=== PATIENT | female | born 1950 | race Caucasian/White ===

== ENCOUNTER 2024-06-05 02:44 | Outpatient (CLI) | payer MEDICARE, BC, SELFPAY | END 2024-06-05 02:45 | disposition home or self-care (01) | PROVIDERS: PCP Family Medicine; Visit Provider Family Medicine | DX: R06.09 Other forms of dyspnea (principal) | CPT/HCPCS: A0425; A0427 ==

== ENCOUNTER 2024-06-05 03:19 | Emergency (ER) | payer MEDICARE, BC, SELFPAY ==
--- NOTE | 2024-06-05 03:21 | ED_ITS ---
HPI - General Adult General Time Seen by Provider: 03:21 Date Seen: 06/05/24 Chief complaint: Shortness of Breath/Dyspnea Stated complaint: respiratory distress Time Seen by Provider: 06/05/24 03:20 Source: patient and EMS Mode of arrival: EMS Limitations: no limitations History of Present Illness HPI narrative: 73-year-old female who comes in today with shortness of breath. Patient says this been going on for several weeks, since being diagnosed with influenza at the end of April. She has a cough with some yellow phlegm, denies chest pain, notes some shortness of breath which tends to be worse at night. No sore throat, runny nose, nausea, vomiting, diarrhea, abdominal pain, dark or tarry stools, leg swelling. Tonight woke up with shortness breath, used albuterol with some improvement, DuoNeb given by EMS on route. Related Data Home Medications ?Medication ?Instructions ?Recorded ?Confirmed albuterol sulfate 90 mcg/actuation inhalation 06/05/24 aerosol inhaler codeine 10 mg-guaifenesin 100 mg/5 5 ml PO Q4H PRN cough 06/05/24 06/05/24 mL oral liquid prednisone 20 mg tablet mg DAILY 06/05/24 Previous Rx's ?Medication ?Instructions ?Recorded amoxicillin 875 mg-potassium 1 tab PO BID #10 tabs 06/05/24 clavulanate 125 mg tablet doxycycline hyclate 100 mg capsule 100 mg PO BID #10 caps 06/05/24 prednisone 10 mg tablets in a dose See Rx Instructions PO .COMPLEX 06/05/24 pack #21 ea Allergies Allergy/AdvReac Type Severity Reaction Status Date / Time No Known Drug Allergies Allergy Verified 06/05/24 03:28 PFS PFS Social History Smoking Status: Current every day smoker What tobacco products do you use: cigarettes Do you use any of these nicotine containing products: None Second hand tobacco smoke exposure: No How often do you have a drink containing alcohol: never AUDIT-C Alcohol total score: 0 Non-prescribed substance use: denies use Exam Narrative: Exam Narrative: General: Well-developed and well-nourished, no acute distress Head: Atraumatic and normocephalic Eyes: Pupils are equal reactive, extraocular motions intact, conjunctiva clear ENT: External nose and ears are normal, posterior pharynx without erythema or exudate Neck: No midline cervical tenderness, full spontaneous range of motion the neck, trachea midline, no adenopathy Heart: Regular rate and rhythm no murmurs or thrills Lungs: Trace expiratory wheeze on the right Abdomen: Soft, nontender, nondistended with active bowel sounds Musculoskeletal: No tenderness, deformity, or edema Neurologic: Awake, alert, and oriented x3, no gross focal neurologic deficits, cranial nerves intact as tested Psych: Mood and affect are appropriate Skin: No rashes Const: Vital Signs, click to edit/add: Vital Signs - 24 hr 06/05/24 03:24 Temperature 97.3 F L Pulse Rate [Pulse Oximeter] 59 L Respiratory Rate 20 Blood Pressure [Ri ght Upper Arm] 134/75 Pulse Oximetry 99 Oxygen Delivery Me thod Room Air Course Course ED Course: Reviewed prior records, patient was seen at outside emergency department May 14 diagnosed with influenza and given albuterol. Subsequently seen again on May 20 and started on Keflex for folliculitis, also prednisone burst for ongoing cough and wheezing. Patient was seen again yesterday morning for cough, chest x-ray at that time with emphysematous changes but no other acute findings and patient was continued on albuterol. Patient presents today with shortness of breath and cough, woke up short of breath tonight. Used albuterol at home with some improvement, DuoNeb by EMS with continued improvement. On exam here, no hypoxia, no tachycardia, no fever. Trace expiratory wheeze on the right. She patient has had x-ray and influenza testing but no further testing up to this point. Labs ordered to evaluate for other causes of shortness of breath including heart failure, CT scan of the chest ordered as well. Consider D-dimer or CT PE study but clinically pulmonary embolism unlikely with no hypoxia, no chest pain, no tachycardia or dysrhythmia. Given history of undiagnosed COPD, if workup today is negative for signs of heart failure other etiology, consider antibiotics for COPD exacerbation and repeat of prednisone burst but would do prolonged taper at this point. Reevaluation(s) Time of Reevaluation #1: 04:04 Reevaluation #1: Labs independently interpreted by me with elevated white blood cell count 12.9. Chest CT independently interpreted by me with multiple nodules, bronchitis. Reviewed patient labs, basic metabolic panel is normal, BNP is negative. Reviewed CT results with patient including pulmonary nodules which will need follow-up, stable for discharge. Time of Reevaluation #2: 04:26 Vital Signs Vital signs: Initial Vital Signs Temperature 97.3 F L 06/05/24 03:24 Temperature Source Temporal Artery Scan 06/05/24 03:24 Pulse Rate 59 L 06/05/24 03:24 Respiratory Rate 20 06/05/24 03:24 Blood Pressure 134/75 06/05/24 03:24 Blood Pressure Mean 94 06/05/24 03:24 Blood Pressure Position Supine 06/05/24 03:24 Pulse Oximetry 99 06/05/24 03:24 Oxygen Delivery Method Room Air 06/05/24 03:24 Vital Signs Temperature 97.3 F L 06/05/24 03:24 Pulse Rate 59 L 06/05/24 03:24 Respiratory Rate 20 06/05/24 03:24 Blood Pressure 134/75 06/05/24 03:24 Pulse Oximetry 99 06/05/24 03:24 Oxygen Delivery Method Room Air 06/05/24 03:24 Temperature 97.3 F L 06/05/24 03:24 Pulse Rate 59 L 06/05/24 03:24 Respiratory Rate 20 06/05/24 03:24 Blood Pressure 134/75 06/05/24 03:24 Pulse Oximetry 99 06/05/24 03:24 Oxygen Delivery Method Room Air 06/05/24 03:24 Medical Decision Making Lab Data Labs: Lab Results 06/05/24 Range/Units 03:45 WBC 12.94 H (4.50-11.00) K/uL RBC 4.46 (4.00-5.20) m/uL Hgb 13.8 (12.0-16.0) gm/dL Hct 42.9 (33.0-51.0) % MCV 96 (80-100) fL MCH 31 (26-34) pg MCHC 32 (32-36) gm/dL RDW Coeff of Dalia 13.7 (11.5-15.5) % Plt Count 347 (140-440) K/uL Neut % (Auto) 70.9 (42.0-72.0) % Lymph % (Auto) 14.8 L (20-44) % Crowley % (Auto) 7.0 (0.0-11.0) % Eos % (Auto) 6.6 (0.0-7.0) % Baso % (Auto) 0.5 (0.0-3.0) % Neut # (Auto) 9.20 H (1.7-7.0) K/uL Lymph # (Auto) 1.90 (0.90-2.90) K/uL Crowley # (Auto) 0.90 (0.00-0.90) K/UL Eos # (Auto) 0.90 H (0.00-0.50) K/uL Baso # (Auto) 0.10 (0.00-0.30) K/uL Abs Immat Gran (auto) 0.00 (0.00-0.30) K/uL Imm/Tot Granulo (auto) 0.2 % Sodium 139 (135-149) mmol/L Potassium 3.7 (3.6-5.1) mmol/L Chloride 104 (96-114) mmol/L Carbon Dioxide 28 (20-32) mmol/L Anion Gap 7 (7-15) mEq/L BUN 8 (7-30) mg/dL Creatinine 0.6 (0.5-1.5) mg/dL Estimated Creat Clear 39.47 Estimated GFR 95 ml/min Glucose 140 H (60-115) mg/dL Calcium 8.8 (8.4-10.6) mg/dL NT-Pro-B Natriuret Pep 290 pg/mL Discharge Plan Discharge Clinical Impression: Acute exacerbation of chronic obstructive pulmonary disease, Infection of lower respiratory tract, Multiple pulmonary nodules Patient Disposition: Home, Self-Care Condition: Stable Instructions: How to Stop Smoking (ED), COPD (Chronic Obstructive Pulmonary Disease) (ED) Additional Instructions: There are a couple of lung nodules. You will need follow-up with your primary care doctor for a repeat CT scan in 3-6 months to re-evaluate and will need repeat CT scans after that. Activity Level: Activity as Tolerated Discharge Diet: Regular Prescriptions: New prednisone 10 mg tablets,dose pack See Rx Instructions .ROUTE .COMPLEX Qty: 21 0RF Rx Instructions: orally per package directions amoxicillin-pot clavulanate 875-125 mg tablet 1 tab PO BID Qty: 10 0RF doxycycline hyclate 100 mg capsule 100 mg PO BID Qty: 10 0RF No Action prednisone 20 mg tablet DAILY codeine-guaifenesin 10-100 mg/5 mL liquid 5 ml PO Q4H PRN (Reason: cough) albuterol sulfate 90 mcg/actuation HFA aerosol inhaler INHALATION Patient Comments: [NO ORIGINAL SIG] Follow Up/Referrals: Júnior Frazier MD [Primary Care Provider] - Stand Alone Forms: [facility] Info Instructions
--- OUTSIDE RECORDS SUMMARY | 2024-06-05 03:22 | XMS_ITS | Encounter Summary ---
Author Organization [facility] Address [address] [place] [address] Care Team Providers Care Administration Assistant Name Role Phone Filippo William M.D. Primary Care Provider [phone] Reason for Referral * Outpatient (Routine) - Authorized Specialty Diagnoses / Procedures Referred By Promise echevarria Referred To Contact Family Medicine Filippo William M.D. [address] [place] [address] Phone: tel: fax: [facility] Referral ID Status Reason Start Date Expiration Date V isits Requested Visits Authorized [id number] Authorized 05/21/2024 11/20/2025 1 1 ERTY ANALYST Reason for Visit * Reason Comments Establish Care With [facility] before. [facility] and [facility]. * Appointment Request (Routine) - Closed Specialty Diagnoses / Procedures Referred By Promise echevarria Referred To Contact Family Medicine Referral ID Status Reason Start Date Expiration Date Visits Re quested Visits Authorized [id number] Closed 05/13/2024 08/13/2025 1 1 Encounter Details Date Type Department Care Team (Latest Contact Info) Description 05/21/2024 8:00 AM PROPERTY ANALYST Comprehensive Visit Department of Family Medicine in [place], [place] [address] [place] [address] Filippo William M.D. [address] [place] [address] Elevated Blood Pressure (Primary Dx) Social History Tobacco Use Types Packs/Day Years Used Date Smoking Tobacco: Former Cigarettes Smokeless Tobacco: Never Alcohol Use Standard Drinks/Week Comments Yes 0 (1 standard drink = 0.6 oz pur e alcohol) Dental Answer Date Recorded Dental: Regular Dentist Unknown 05/13/19 25 Comments No Sex and Gender Information Value Date Recorded Sex Assigned at Not on file Legal Sex Female 1:22 PM PROPERTY ANALYST Gender Identity Not on file Sexual Orientation Not on file documented as of this encounter Last Filed Vital Signs Vital Sign Reading Time Taken Comments Blood Pressure 181/76 05/21/2024 7:53 AM PROPERTY ANALYST Pulse 62 05/21/2024 7:53 AM PROPERTY ANALYST Temperature 35.2 C (95.4 F) 05/21/2024 7:53 AM PROPERTY ANALYST Respiratory Rate - - Oxygen Saturation 97% 05/21/2024 7:53 AM PROPERTY ANALYST Inhaled Oxygen Concentration - - Weight 46.4 kg (102 lb 6.4 oz) 05/21/2024 7:53 A M PROPERTY ANALYST Height 170 cm (5' 6.93) 05/21/2024 7:53 AM PROPERTY ANALYST Body Mass Index 16.07 05/21/2024 7:53 AM PROPERTY ANALYST documented in this encounter Progress Notes * Filippo William M.D. - 05/21/2024 8:00 AM CST SUBJECTIVE CHIEF COMPLAINT/REASON FOR VISIT Chief Complaint Patient presents with Establish Care With [facility] before. [facility] and [facility]. HISTORY OF PRESENT ILLNESS Afsaneh Uribe is a 73 y.o. female who presents for follow up from seen yesterday for sequela related to recent Influenza A infection. In addition, she was diagnosed with folliculitis yesterday and given cephalexin. The following portions of the patient's history were reviewed: allergies, current medications, medical history, social history and problem list REVIEW OF SYSTEMS All other systems are negative. OBJECTIVE VITAL SIGNS BP (!) 181/76 (BP Location: Left arm, Patient Position: Sitting, Cuff Size: Regular) Pulse 62 Temp (!) 35.2 ??C (Temporal) Ht 170 cm Wt 46.4 kg SpO2 97% BMI 16.07 kg/m?? PHYSICAL EXAMINATION General: Thin with mild kyphosis. Alert, in no apparent distress, nontoxic appearing. She appears forgetful and unclear in regards to her current medication from yesterday. She decided not to start the cephalexin because it is colored red and she heard that red dye is not good for you. Mood and affect were otherwise appropriate to the situation. HEENT: No pallor or icterus. Conjunctivae and sclerae clear without redness or drainage. Nares patent bilaterally. Oropharynx was clear with no erythema, exudate or tonsillar enlargement. Moist mucous membranes. Neck: Trachea was midline. No lymphadenopathy. Heart: S1, S2 with no significant murmurs, rubs or gallops. Regular rate and rhythm. Lungs: Scattered wheezes. Respirations were regular, nonlabored. Extremities: Without redness, swelling, or edema. Skin: Scattered red papules with pustules scattered across the anterior chest and crossing the midline. They are pruritic and she is scratching off and on in this general vicinity. Extremities, face,neck and upper back are spared. ASSESSMENT / PLAN 1. Elevated Blood Pressure (Primary) Afsaneh does not recall being told that she has had problems with her blood pressure before. She is not on any medication for this. She declined a medical treatment for this today as she feels it is secondary to being ill recently which is certainly possible. I have thus recommended that she have routine follow-up in 1 month which should give her more time to convalesce from her recent respiratory tract infection. She was in agreement with that. 2. Influenza A-convalescent She now appears to be improving steadily. She states that her cough is better since starting the prednisone. I have recommended that she continue with the current course as ordered and she will follow-up as needed. She is wondering if a chest x-ray would be of benefit today and ultimately she declined since she acknowledges improvement. 3. Folliculitis I have encouraged Afsaneh to start and complete the antibiotic ordered for her skin rash. She has no history of red dye sensitivity and I reassured her that her medication is FDA approved. 4. Tobacco use cigarettes She declined any interventions towards cessation of smoking today. ERTY ANALYST documented in this encounter Plan of Treatment Upcoming Encounters Date Type Department Care Team (Late st Contact Info) Description 06/25/2024 10:40 AM CDT Office Visit Department of Family Medicine in [place] [address] [place] [address] Filippo William M.D. [address] [place] [phone] Scheduled Referrals Name Type Priority Associated Diagnoses Orde r Schedule Family Medicine office visit (clinic) Outpatient Referral Routine Expected: 06/18/2024, Expires: 08/18/2025 documented as of this encounter Visit Diagnoses Diagnosis Elevated Blood Pressure- Primary documented in this encounter Care Teams Administration Assistant Relationship Specialty Start Date End Date Filippo William M.D. [address] [place] [address] PCP - General Family Medicine 05/14/24 documented as of this encounter
--- OUTSIDE RECORDS SUMMARY | 2024-06-05 03:22 | XMS_ITS | Encounter Summary ---
Author Organization [facility] Address [address] [place] [address] Care Team Providers Care Head Of Mathematics Name Role Phone Filippo William M.D. Primary Care Provider [phone] Reason for Visit * Reason Comments Cough I'm just here to ge t a refill on my cough syrup. Encounter Details Date Type Department Care Team (Late st Contact Info) Description 05/20/2024 10:56 AM TRUST ACCOUNTS SUPERVISOR - 05/20/2024 12:24 PM TRUST ACCOUNTS SUPERVISOR Emergency [facility] [address] [place] [address] Antoinette Thomas APRN, C.N.P., M.S.N. [address] [place] [address] Influenza (Primary Dx); Wheezing; Folliculitis Discharge Disposition: Home or Self Care Social History Tobacco Use Types Packs/Day Years Used Date Smoking Tobacco: Former Cigarettes Smokeless Tobacco: Never Alcohol Use Standard Drinks/Week Comments Yes 0 (1 standard drink = 0.6 oz pur e alcohol) Dental Answer Date Recorded Dental: Regular Dentist Unknown 05/13/19 Comments No Sex and Gender Information Value Date Recorded Sex Assigned at Not on file Legal Sex Female 1:22 PM TRUST ACCOUNTS SUPERVISOR Gender Identity Not on file Sexual Orientation Not on file documented as of this encounter Last Filed Vital Signs Vital Sign Reading Time Taken Comments Blood Pressure 161/71 05/20/2024 10:59 AM TRUST ACCOUNTS SUPERVISOR Pulse 80 05/20/2024 10:59 AM TRUST ACCOUNTS SUPERVISOR Temperature 37.3 C (99.1 F) 05/20/2024 10:59 AM TRUST ACCOUNTS SUPERVISOR Respiratory Rate 20 05/20/2024 10:59 AM TRUST ACCOUNTS SUPERVISOR Oxygen Saturation 98% 05/20/2024 10:59 AM TRUST ACCOUNTS SUPERVISOR Inhaled Oxygen Concentration - - Weight 49.9 kg (110 lb) 05/20/2024 10:57 AM TRUST ACCOUNTS SUPERVISOR Height - - Body Mass Index - - documented in this encounter Medications at Time of Discharge albuterol 90 mcg/actuation inhaler Inhale 2 puffs every 6 (six) hours as needed for wheezing or shortness of breath (Cough). 18 g 11 05/14/2024 cephalexin (Keflex) 500 mg capsuleIndicatio ns:Influenza,Whe ezing,Folliculit is Take 1 capsule (500 mg total) by mouth 3 (three) times a day for 7 days. 21 capsule 05/20/2024 5 predniSONE (Deltasone) 20 mg tablet Take 1 tablet (20 mg total) by mouth daily for 5 days. 5 tablet 05/20/2024 5 codeine-guaiFENe sin (Robitussin AC) 10-100 mg/5 mL liquid Take 5 mL by mouth every 4 (four) hours as needed for cough. 118 mL 05/20/2024 5 documented as of this encounter Progress Notes * Antoinette Thomas APRN, C.N.P., M.S.N. - 05/20/2024 12:17 PM CST SUBJECTIVE CHIEF COMPLAINT / REASON FOR VISIT Cough (I'm just here to get a refill on my cough syrup.) HISTORY OF PRESENT ILLNESS Afsaneh Uribe is a 73 y.o. female who presents for evaluation of a cough. The patient is here today alone. She states she has been coughing for 1 month now. She was seen about a week ago in the clinic and did test positive for influenza A at that time. She reports she had been coughing for quite awhile before she even came in to be tested. She states she has a little bit short of breath with some chest tightness. She was given benzonatate capsules and codeine guaifenesin cough syrup last week when she was here for the cough. She states the cough is primarily bad at night and she can not sleep well. She states the benzonatate capsules are not helping and she wonders if she may have developed a rash from them as well. She states she has had a rash for about a week also and it is itchy. Shedenies swimming or being in a hot tub recently or any new skin care products. She has been scratching at her chest and back where her the rashes and has some excoriated areas. She states her sister told her that benzonatate capsules frequently cause a rash. She reports that she has a appointment coming up tomorrow with Dr. Mckeon to establish care. She states she does not have any chest pain today. She states she has not had a fever. She denies any nasal congestion or sore throat today. She reports complaints about how this healthcare system is run today and reportedly the triage nurse in the ED had some concerns with her behavior and some statements that she made over there. The patient's social history, problem list, medications and allergies were reviewed in the electronic medical record. REVIEW OF SYSTEMS A brief review of systems was negative except for that mentioned in the history of present of illness. The patient's social history, medical history, problem list, medications and allergies were reviewed in the electronic medical record. OBJECTIVE VITAL SIGNS BP (!) 161/71 (BP Location: Left arm, Patient Position: Sitting) Pulse 80 Temp 37.3 ??C (Temporal) Resp 20 Wt 49.9 kg SpO2 98% PHYSICAL EXAMINATION Constitutional General: She is not in acute distress. Appearance: Normal appearance. She is not toxic-appearing. HENT Head: Normocephalic and atraumatic. Right Ear: Tympanic membrane, ear canal and external ear normal. Left Ear: Tympanic membrane, ear canal and external ear normal. Nose: Nose normal. Mouth/Throat: Pharynx: Oropharynx is clear. Eyes Conjunctiva/sclera: Conjunctivae normal. Cardiovascular Rate and Rhythm: Normal rate and regular rhythm. Heart sounds: Normal heart sounds. Pulmonary Effort: Pulmonary effort is normal. No respiratory distress. Breath sounds: Wheezing present. No rhonchi or rales. Chest Chest wall: No tenderness. Skin Comments: There are erythematous papules on her chest, abdomen and back which are also pruritic. There are some open, excoriated areas from scratching. Neurological Mental Status: She is alert. Psychiatric Mood and Affect: Mood is anxious. ASSESSMENT / PLAN #1 Influenza #2 Wheezing #3 Folliculitis We discussed that her rash does not appear to be allergic and she will be treated with Keflex for folliculitis. She will start prednisone for wheezing in her lungs and I did refill the codeine guaifenesin cough syrup. She is aware to take this only at night and at that it may cause drowsiness and also be addictive. We discussed that no further refills would be provided on this. She does have an appointment with a PCP in the morning to establish care. She is aware to take the prednisone in the mornings with food. Follow up as needed. New Medications Ordered This Visit Medications predniSONE (Deltasone) 20 mg tablet Sig: Take 1 tablet (20 mg total) by mouth daily for 5 days. Dispense: 5 tablet Refill: 0 cephalexin (Keflex) 500 mg capsule Sig: Take 1 capsule (500 mg total) by mouth 3 (three) times a day for 7 days. Dispense: 21 capsule Refill: 0 codeine-guaiFENesin (Robitussin AC) 10-100 mg/5 mL liquid Sig: Take 5 mL by mouth every 4 (four) hours as needed for cough. Dispense: 118 mL Refill: 0 Patient agrees with plan and verbalizes understanding of plan. Patient was provided verbal and written education and has no further questions or concerns. She will follow up as needed or at the next scheduled return visit. She will call the clinic if there are any further questions or concerns in the meantime. Antoinette Thomas APRN, C.NMaurice, M.S.N. 05/20/24 1221 Antoinette Thomas APRN, C.NMaurice, M.S.N. 05/20/24 1223 T ACCOUNTS SUPERVISOR T ACCOUNTS SUPERVISOR documented in this encounter ED Notes * Dilma Carmen R.N. - 05/20/2024 11:40 AM CST WORKPLACE VIOLENCE FOLLOW-UP: Non-physical event: Threats of harm Description of Event: Patient presented to ED/UC triage for cough/cold medication refill after being told it would not berefilled over the phone. Pt was brought back to triage room and was visual distraught. RN reiterated that short-term medications/controlled substances cannot be refilled over the phone without a repeat medical evaluation. Pt: You better watch out. With how you run this place you are going to make people go on killing sprees. RN:Ma'am you need to be mindful of what you say to me. We make these policies for staff and pt safety. I don't make these rules, I am just following them. Patient: Spoken like the Nazis. RN:I will be adding this encounter to your chart. RN completed triage and excused patient to lobby to wait for staff to bring her back to an Urgent Care room. Patient apologized for lashing out to staff upon departure from triage room. Electronically signed by: Dilma Carmen R.N. 05/20/24 11:45 AM TRUST ACCOUNTS SUPERVISOR Dilma Carmen R.N. 05/20/24 1147 T ACCOUNTS SUPERVISOR documented in this encounter Plan of Treatment Upcoming Encounters Date Type Department Care Team (Late st Contact Info) Description 06/25/2024 10:40 AM CDT Office Visit Department of Family Medicine in [place] [address] [place] [address] [address] M[address] [place] [facility] [place] [address] documented as of this encounter Visit Diagnoses Diagnosis Influenza- Primary Influenza Wheezing Folliculitis Wheezing Folliculitis documented in this encounter Additional Health Concerns Infection Onset Date Last Indicated Resolved Time Influenza 05/14/2024 05/14/2024 05/21/2024 6:32 AM TRUST ACCOUNTS SUPERVISOR documented as of this encounter Care Teams Head Of Mathematics Relationship Specialty Start Date End Date Filippo William M.D. [address] [place] [address] PCP - General Family Medicine 05/14/24 documented as of this encounter
--- OUTSIDE RECORDS SUMMARY | 2024-06-05 03:22 | XMS_ITS | Encounter Summary ---
Author Organization [facility] Address [address] [place] [address] Care Team Providers Care Digital Project Coordinator Name Role Phone Filippo William M.D. Primary Care Provider +1 [phone] Reason for Visit * Reason Comments Cough 73 yo presents for e garcia of 7 days of cough and feeling SOB. Is concerned she has covid. Encounter Details Date Type Department Care Team ([facility] st Contact Info) Description 05/14/2024 11:11 AM EXECUTIVE ASSISTANT TO GENERAL COUNSEL - 05/14/2024 11:45 AM EXECUTIVE ASSISTANT TO GENERAL COUNSEL Emergency [place] [facility] [address] [place] [phone] Henrietta Montes APRN, C.N.P. [address] [place] [phone] Influenza (Primary Dx); Elevated Blood Pressure; Cough Acute Discharge Disposition: Home or Self Care Social History Tobacco Use Types Packs/Day Years Used Date Smoking Tobacco: Former Cigarettes Smokeless Tobacco: Never Tobacco Cessation:Counseling Given: Not Answered Alcohol Use Standard Drinks/Week Comments Yes 0 (1 standard drink = 0.6 oz pur e alcohol) Dental Answer Date Recorded Dental: Regular Dentist Unknown 05/13/19 25 Comments No Sex and Gender Information Value Date Recorded Sex Assigned at Not on file Legal Sex Female 1:22 PM EXECUTIVE ASSISTANT TO GENERAL COUNSEL Gender Identity Not on file Sexual Orientation Not on file documented as of this encounter Last Filed Vital Signs Vital Sign Reading Time Taken Comments Blood Pressure 145/101 05/14/2024 10:47 AM EXECUTIVE ASSISTANT TO GENERAL COUNSEL Pulse 79 05/14/2024 10:47 AM EXECUTIVE ASSISTANT TO GENERAL COUNSEL Temperature 36.5 C (97.7 F) 05/14/2024 10:47 AM EXECUTIVE ASSISTANT TO GENERAL COUNSEL Respiratory Rate 20 05/14/2024 10:4 7 AM EXECUTIVE ASSISTANT TO GENERAL COUNSEL Oxygen Saturation 96% 05/14/2024 10: 47 AM EXECUTIVE ASSISTANT TO GENERAL COUNSEL Inhaled Oxygen Concentration - - Weight 46.2 kg (101 lb 13.6 oz) 025 10:48 AM EXECUTIVE ASSISTANT TO GENERAL COUNSEL Height - - Body Mass Index - - documented in this encounter Discharge Instructions * Discharge Instructions* Henrietta Montes APRN, C.N.P. - 05/14/2024 11:30 AM EXECUTIVE ASSISTANT TO GENERAL COUNSEL You have been diagnosed with influenza a today. You were seen in [place] urgent care. Best treatment is rest, concentrate on fluids to remain well hydrated, you may take acetaminophen extra-strength 2 tablets 3 times a day as needed for comfort and body aches. You are prescribed a medication called Tessalon Perles. You may take 1 capsule up to 3 times a day as needed for your cough. Some people prefer to schedule this at 8 in the morning 2 in the afternoonin 8 again in the evening. If you are no longer coughing you no longer need to continue to take this medication. If you have a humidifier this can help moisturize the area breathe and decrease the cough. Your blood pressure is elevated today which could be a result of not feeling well. If you have a home blood pressure monitor please check your blood pressure prior to your appointment with Dr. Eagle take your readings and to the appointment. Please follow-up with Dr. Pace as previously scheduled. To the emergency department if you are unable to catch her breath, have chest pain, abdominal pain or any other emergent concern. UTIVE ASSISTANT TO GENERAL COUNSEL UTIVE ASSISTANT TO GENERAL COUNSEL * Attachments The following attachments cannot be sent through Care Everywhere. * Influenza Adult Kput-lf-Kbpw (Gibraltarian) * Hypertension Adult Cbby-ws-Hceo (Gibraltarian) * Cough Adult Fkkf-uq-Ytva (Gibraltarian) documented in this encounter Medications at Time of Discharge albuterol 90 mcg/actuation inhaler Inhale 2 puffs every 6 (six) hours as needed for wheezing or shortness of breath (Cough). 18 g 11 05/14/2024 benzonatate (Tessalon Perles) 100 mg capsule Take 1 capsule (100 mg total) by mouth 3 (three) times a day as needed for cough. 20 capsule 05/14/2024 5 codeine-guaiFENe sin (Robitussin AC) 10-100 mg/5 mL liquid Take 5-10 mL by mouth every 6 (six) hours as needed for cough. May cause fatigue. 120 mL 05/14/2024 5 documented as of this encounter Progress Notes * Henrietta Montes, ALEXSANDER, C.N.P. - 05/14/2024 11:13 AM CST SUBJECTIVE CHIEF COMPLAINT / REASON FOR VISIT Cough (73 yo presents for eval of 7 days of cough and feeling SOB. Is concerned she has covid. ) HISTORY OF PRESENT ILLNESS Afsaneh Uribe is a 73 y.o. female who presents for evaluation of exhaustion, cough, cough is keeping awake at night, shortness of breath. No known fever. No known wheezing. No nausea vomiting or diarrhea reported. Appetite is decreased. Has been tolerating fluids. Reports to me she has not been seen by a physician for 3 years. No known medical conditions. Patient [place] ever since COVID. No prior history of COVID. The following portions of the patient's history were reviewed and updated as appropriate: Allergies, current medications, medical history. REVIEW OF SYSTEMS Pertinent items are noted in HPI; all other review of systems was negative. OBJECTIVE VITAL SIGNS BP (!) 145/101 (BP Location: Left arm;Upper, Patient Position: Sitting) Pulse 79 Temp 36.5 ??C (Temporal) Resp 20 Wt 46.2 kg SpO2 96% PHYSICAL EXAMINATION Physical Exam General: Pleasant 73 y.o. female with obvious cough. Skin: Warm, dry and intact. No evidence of rash. Head: Normocephalic with congestion in maxillary and nasal regions. Nares boggy. Eyes: Conjunctivae minimally injected bilaterally. Ears: Tympanic membranes are pink and intact bilaterally. Throat: Posteriorly mild erythema and injections in the posterior oropharynx. Cobblestoned appearance. Neck: Full and supple. No lymphadenopathy. Heart: Rate rhythmical and regular without rub or murmur. Lungs: Scattered harsh sounds and wheezes throughout anterior and posterior lung merrill. Respirations nonlabored at rest. Escalate with cough. Mental Status: Alert, oriented, pleasant, cooperative. Fatigued. DIAGNOSTICS Labs: Results for orders placed or performed during the hospital encounter of 05/14/24 Influenza A/B, SARS CoV-2, PCR, Rapid Symptomatic Collection Time: 05/14/24 10:50 AM Specimen: Nasopharynx; Swab Result Value Ref Range Influenza A, PCR, Rapid, V Positive (A) Negative Influenza B, PCR, Rapid, V Negative Negative SARS CoV-2, PCR, Rapid, V Undetected Undetected Infl A/B, SARS CoV-2, PCR, Source Swab, Nasopharynx ASSESSMENT / PLAN Diagnosis Plan 1. Influenza Active 2. Elevated Blood Pressure Active 3. Cough Acute Active Pleasant 73-year-old female. Who is fatigued appearing. Who does have a cough with wheezing. Consented to DuoNeb by nebulizer. Which tolerated well. With improvement in wheezing. Reviewed use and side effects of medications given in clinic and prescribed. Patient's blood pressure is elevated today. Unclear if related to illness or ongoing. Given blood pressure recording card. Reviewed strict return to care precautions. Majority of time spent counseling patient as she has not seen a physician in 3 years. Follow-up with primary care as previously scheduled for further follow-up and establishment of care. To the emergency department with any emergent concerns. No further questions or concerns. Follow up as discussed and reviewed in AVS. Discharged from [facility] in stable independent ambulatory fatigued condition. Henrietta Montes APRN, C.N.P. 05/14/24 1136 UTIVE ASSISTANT TO GENERAL COUNSEL documented in this encounter Plan of Treatment Upcoming Encounters Date Type Department Care Team (Late st Contact Info) Description 06/25/2024 10:40 AM CDT Office Visit Department of Family Medicine in [place], [place] [address] [place] [address] Filippo William M.D. [address] [place] [phone] documented as of this encounter Procedures Procedure Name Priority Date/Time Associated Diagnosis Comments IFLU A, B, SARS COV-2, PCR, RAPID,V STAT 05/14/2024 10:50 AM EXECUTIVE ASSISTANT TO GENERAL COUNSEL documented in this encounter Results * (ABNORMAL) Influenza A/B, SARS CoV-2, PCR, Rapid Symptomatic (05/14/2024 10:50 AM EXECUTIVE ASSISTANT TO GENERAL COUNSEL) Influenza A, PCR, Rapid, V Positive(A) Negative 05/14/2024 10:54 AM EXECUTIVE ASSISTANT TO GENERAL COUNSEL NPRG Influenza B, PCR, Rapid, V Negative Negative 05/14/2024 10:54 AM EXECUTIVE ASSISTANT TO GENERAL COUNSEL NPRG SARS CoV-2, PCR, Rapid, V Undetected Undetected 05/14/2024 10:54 AM EXECUTIVE ASSISTANT TO GENERAL COUNSEL NPRG Infl A/B, SARS CoV-2, PCR, Source Swab, Nasopharynx 05/14/2024 10:53 AM EXECUTIVE ASSISTANT TO GENERAL COUNSEL NPRG Swab (Nasopharynx) 05/14/2024 10:50 AM EXECUTIVE ASSISTANT TO GENERAL COUNSEL 05/14/2024 10:53 AM EXECUTIVE ASSISTANT TO GENERAL COUNSEL us Henrietta Montes APRN, C.N.P. LAB MICROBIOLOGY - G ENERAL ORDERABLES Final Result [facility] [address] [place] [address], [facility] [[email or web address]] NPRG [facility] [address] [place] [address] documented in this encounter Visit Diagnoses Diagnosis Influenza- Primary Elevated Blood Pressure Cough Acute documented in this encounter Administered Medications Inactive Administered Medications - up to 3 most recent administrations Medication Order MAR Action Action Date Dose Rate Site ipratropium-albuteroL 0.5-2.5 mg/3 mL nebulizer solution 3 mL (DuoNeb) 3 mL, nebulization, Once, On Mon05/14/24 at 1122, For 1 dose Given 05/14/2024 11:25 AM EXECUTIVE ASSISTANT TO GENERAL COUNSEL 3 mL documented in this encounter Active and Recently Administered Medications Times are shown in EXECUTIVE ASSISTANT TO GENERAL COUNSEL. Scheduled Medication Order 05/12/2024 05/13/2024 05/14/2024 ipratropium-albuteroL 0.5-2.5 mg/3 mL nebulizer solution 3 mL (DuoNeb) (COMPLETED) 3 mL, nebulization, Once, On Mon05/14/24 at 1122, For 1 dose 1125 (Given - Provid er: Germania Quinn R.N.) documented in this encounter Additional Health Concerns Infection Onset Date Last Indicated Resolved Time COVID19 Pending 05/14/2024 05/14/2024 05/14/2024 1 1:14 AM EXECUTIVE ASSISTANT TO GENERAL COUNSEL Influenza 05/14/2024 05/14/2024 05/21/2024 6:32 AM EXECUTIVE ASSISTANT TO GENERAL COUNSEL documented as of this encounter Care Teams Digital Project Coordinator Relationship Specialty Start Date End Date Filippo William M.D. [facility] [place] [id number] PCP - General Family Medicine 05/14/24 documented as of this encounter
--- OUTSIDE RECORDS SUMMARY | 2024-06-05 03:22 | XMS_ITS | Encounter Summary ---
Author Organization [facility] Address [address] [place] [address] Care Team Providers Care General Service Technician Name Role Phone Filippo William M.D. Primary Care Provider [phone] [phone] Reason for Visit * Reason Onset Date Comments Med Refill 05/31/2024 Encounter Details Date Type Department Care Team (Late st Contact Info) Description 05/31/2024 Refill Department of Family Medicine in [place], [place] [address] [place] [address] Filippo William M.D. [address] [place] [phone] Med Refill Social History Tobacco Use Types Packs/Day Years Used Date Smoking Tobacco: Former Cigarettes Smokeless Tobacco: Never Alcohol Use Standard Drinks/Week Comments Yes 0 (1 standard drink = 0.6 oz pur e alcohol) Dental Answer Date Recorded Dental: Regular Dentist Unknown 05/13/19 Comments No Sex and Gender Information Value Date Recorded Sex Assigned at Not on file Legal Sex Female 1:22 PM CRANE MECHANIC Gender Identity Not on file Sexual Orientation Not on file documented as of this encounter Miscellaneous Notes * Telephone Encounter - Kierra Aldrich L.PRohitNRohit - 05/31/2024 3:51 PM CRANE MECHANIC R: Prescription pended for refill. Would like cough medication for the weekend. S: Request from: patient B: 05/21/24 2. Influenza A-convalescent She now appears to be improving steadily. She states that her cough is better since starting the prednisone. I have recommended that she continue with the current course as ordered and she will follow-up as needed. She is wondering if a chest x-ray would be of benefit today and ultimately she declined since she acknowledges improvement. A: Name of Medication(s) Needing Refill: Requested Prescriptions Pending Prescriptions Disp Refills codeine-guaiFENesin (Robitussin AC) 10-100 mg/5 mL liquid 118 mL 0 Sig: Take 5 mL by mouth every 4 (four) hours as needed for cough. Last Appointment: 05/21/2024 Future Appointment: 06/25/2024 Pharmacy Verified: Yes E MECHANIC documented in this encounter Plan of Treatment Upcoming Encounters Date Type Department Care Team (Late st Contact Info) Description 06/25/2024 10:40 AM CDT Office Visit Department of Family Medicine in [place], [place] [address] [place] [address] Filippo William M.D. [address] [place] [phone] documented as of this encounter Visit Diagnoses Not on filedocumented in this encounter Care Teams General Service Technician Relationship Specialty Start Date End Date Filippo William M.D. [address] [place] [phone] PCP - General Family Medicine 05/14/24 documented as of this encounter
--- OUTSIDE RECORDS SUMMARY | 2024-06-05 03:22 | XMS_ITS | Encounter Summary ---
Author Organization [facility] Address [address] [place] [address] Care Team Providers Care Wine Master Name Role Phone Filippo William M.D. Primary Care Provider +1 [phone] Reason for Visit * Reason Onset Date Comments Med Refill 05/20/2024 Encounter Details Date Type Department Care Team (Late st Contact Info) Description 05/20/2024 Refill Department of Family Medicine in [place], [place] [address] [place] [address] Filippo William M.D. [address] [place] [phone] Med Refill Social History Tobacco Use Types [...] on file Legal Sex Female 1:22 PM TRIAGE LICENSED PRACTICAL NURSE Gender Identity Not on file Sexual Orientation Not on file documented as of this encounter Miscellaneous Notes * Telephone Encounter - Gladys Vu R.N. - 05/20/2024 10:06 AM TRIAGE LICENSED PRACTICAL NURSE Informed patient that provider would need to see her prior to any prescription, provider also not in clinic today. Patient previously saw a provider at the [facility], but hadn't been in for a few years so notseeing anyone regularly. GE LICENSED PRACTICAL NURSE documented in this encounter Plan of Treatment Upcoming Encounters Date Type Department Care Team (Late st Contact Info) Description 06/25/2024 10:40 AM CDT Office Visit Department of Family Medicine in [place], [place] [address] [place] [address] Filippo William M.D. [address] [place] [phone] documented as of this encounter Visit Diagnoses Not on filedocumented in this encounter Additional Health Concerns Infection Onset Date Last Indicated Resolved Time Influenza 05/14/2024 05/14/2024 05/21/2024 6:32 AM TRIAGE LICENSED PRACTICAL NURSE documented as of this encounter Care Teams Wine Master Relationship Specialty Start Date End Date Filippo William M.D. [address] [place] [phone] PCP - General Family Medicine 05/14/24 documented as of this encounter
--- OUTSIDE RECORDS SUMMARY | 2024-06-05 03:22 | XMS_ITS | Clinical Summary ---
Author Organization [facility] Address [address] [place] [address] Care Team Providers Care Maintenance Planning Clerk Name Role Phone Filippo William M.D. Primary Care Provider [phone] [phone] Source Comments Patient records contain information from all sites at [facility]. For routine questions regarding patient records, call [phone] during business hours, M-F 8:00 AM - 5:00 PM Central Time. Record requests for emergency care only can be directed to [phone] at any time.[facility] Allergies No known active allergies Medications albuterol 90 mcg/actuation inhaler Inhale 2 puffs every 6 (six) hours as needed for wheezing or shortness of breath (Cough). 18 g 11 05/14/19 25 Active codeine-guaiFE Nesin (Robitussin AC) 10-100 mg/5 mL liquid Take 5 mL by mouth every 6 (six) hours as needed for cough. 118 mL 06/04/19 25 Active albuterol 90 mcg/actuation inhaler Inhale 2 puffs every 6 (six) hours as needed for wheezing. 6.7 g 06/04/19 25 Active codeine-guaiFE Nesin (Robitussin AC) 10-100 mg/5 mL liquid Take 5-10 mL by mouth every 6 (six) hours as needed for cough. May cause fatigue. 120 mL 05/14/19 25 025 Discontinued benzonatate (Tessalon Perles) 100 mg capsule Take 1 capsule (100 mg total) by mouth 3 (three) times a day as needed for cough. 20 capsule 05/14/19 25 025 Discontinued predniSONE (Deltasone) 20 mg tablet Take 1 tablet (20 mg total) by mouth daily for 5 days. 5 tablet 05/20/19 25 025 cephalexin (Keflex) 500 mg capsuleIndicat ions:Influenza ,Wheezing,Foll iculitis Take 1 capsule (500 mg total) by mouth 3 (three) times a day for 7 days. 21 capsule 05/20/19 25 025 codeine-guaiFE Nesin (Robitussin AC) 10-100 mg/5 mL liquid Take 5 mL by mouth every 4 (four) hours as needed for cough. 118 mL 05/20/19 25 025 Discontinued(Du plicate order) codeine-guaiFE Nesin (Robitussin AC) 10-100 mg/5 mL liquid Take 5 mL by mouth every 4 (four) hours as needed for cough. 118 mL 05/20/19 25 025 Discontinued(Re order) codeine-guaiFE Nesin (Robitussin AC) 10-100 mg/5 mL liquid Take 5 mL by mouth every 4 (four) hours as needed for cough. 118 mL 05/31/19 25 025 Discontinued(Th erapy completed) Active Problems Problem Noted Date Diagnosed Date Influenza 05/20/2024 Wheezing 05/20/2024 Folliculitis 05/20/2024 Encounters Date Type Department Care Team Description 06/04/2024 11:44 AM WATER PUMP SERVICER - 06/04/2024 12:47 PM [facility] Emergency [place] [facility] [address] [place] [address] Haley Yang P.A.-C., P.A. Cough Subacute (Primary Dx) Discharge Disposition: Home or Self Care 05/31/2024 Refill Department of Family Medicine in [place], [place] [address] [place] [address] Filippo William M.D. Med Refill 05/21/2024 8:00 AM [facility] Comprehensive Visit Department of Family Medicine in [place], [place] [address] [place] [address] Filippo William M.D. Elevated Blood Pressure (Primary Dx) 05/20/2024 10:56 AM WATER PUMP SERVICER - 05/20/2024 12:24 PM WATER PUMP SERVICER Emergency [place] [facility] [address] [place] [phone] Antoinette Thomas APRN, C.N.P., M.S.N. Influenza (Primary Dx); Wheezing; Folliculitis Discharge Disposition: Home or Self Care 05/20/2024 Refill Department of Family Medicine in [place] [address] [place] [address] Filippo William M.D. Med Refill 05/14/2024 11:11 AM WATER PUMP SERVICER - 05/14/2024 11:45 AM [facility] Emergency [place] [facility] [address] [place] [phone] Henrietta Montes APRN C.N.PRohit Influenza (Primary Dx); Elevated Blood Pressure; Cough Acute Discharge Disposition: Home or Self Care from Last 3 Months Social History Tobacco Use Types Packs/Day Years Used Date Smoking Tobacco: Every Day Cigarettes Passive Smoke Exposure: Current Smokeless Tobacco: Never Tobacco Cessation:Ready to Q uit: Not Asked; Counseling Given: Not Answered Alcohol Use Standard Drinks/Week Comments Yes 0 (1 standard drink = 0.6 oz pur e alcohol) Dental Answer Date Recorded Dental: Regular Dentist Unknown 05/13/19 25 Comments No Sex and Gender Information Value Date Recorded Sex Assigned at Not on file Legal Sex Female 1:22 PM WATER PUMP SERVICER Gender Identity Not on file Sexual Orientation Not on file Last Filed Vital Signs Vital Sign Reading Time Taken Comments Blood Pressure 173/81 06/04/2024 10:50 AM WATER PUMP SERVICER Pulse 72 06/04/2024 10:50 AM WATER PUMP SERVICER Temperature 36.4 C (97.5 F) 06/04/2024 10:50 AM WATER PUMP SERVICER Respiratory Rate 16 06/04/2024 10:50 AM WATER PUMP SERVICER Oxygen Saturation 97% 06/04/2024 10:50 AM WATER PUMP SERVICER Inhaled Oxygen Concentration - - Weight 46.5 kg (102 lb 8.2 oz) 06/04/2024 10:51 AM WATER PUMP SERVICER Height 170.2 cm (5' 7) 06/04/2024 10:51 AM WATER PUMP SERVICER Body Mass Index 16.06 06/04/2024 10:51 AM WATER PUMP SERVICER Plan of Treatment Upcoming Encounters Date Type Department Care Team (Late st Contact Info) Description 06/25/2024 10:40 AM CDT Office Visit Department of Family Medicine in [place], [place] [address] [place] [address] Filippo William M.D. [address] [place] [address] Health Maintenance Due Date Last Done Comments Bone Density Scan (Osteoporosis Screen) 1950 CT Colonography 1950 Cologuard 1950 Colonoscopy 1950 Colorectal Cancer Screening 1950 FIT 1950 Fasting Glucose for Diabetes Screening 1950 Hepatitis C Screening 1950 Mammogram 1950 Tobacco Cessation counseling 1950 Visit: Medicare Annual Wellness 1950 Pneumococcal vaccine (50+ years) (1 of 2 - PCV) 1969 Zoster Vaccines (1 of 2) 2000 COVID-19 Vaccine (3 - 2023-2 5 season) 2023 09/04/2020, 08/14/2020 Influenza Vaccine (#1) 2024 4, 04/30/2013, 01/05/2012 Depression Screening (Annual PHQ-2) 04/17/2024 Fall Risk Screen (Annual) 04/17/2024 Visit: Annual, age 65+ (or Medicare and <65) 05/21/2025 05/21/2024 DTaP,Tdap,and Td Vaccines (3 - Td or Tdap) 05/05/2031 05/05/2021, 12/11/2009 IPV Vaccines Aged Out No longer eligi ble based on patient's age to complete this topic Procedures Procedure Name Priority Date/Time Associated Diagnosis Comments DX CHEST AP OR PA AND LATERAL 2 VIEWS RAD - Semiurgent (Fast; most ED patients; some inpatients) 06/04/2024 12:40 PM WATER PUMP SERVICER Cough Subacute IFLU A, B, SARS COV-2, PCR, RAPID,V STAT 05/14/2024 10:50 AM WATER PUMP SERVICER from Last 3 Months Results * DX Chest AP or PA and Lateral 2 Views (06/04/2024 12:40 PM WATER PUMP SERVICER) Anatomical Region Laterality Modality Chest, Thoracic RST LOS, Tho racic ARZ LOS, Thoracic FLA LOS N/A Digital Radiography Impressions 06/04/2024 12:47 PM WATER PUMP SERVICER 1. No pneumothorax. 2. No acute airspace disease. 3. Chronic emphysema Narrative 06/04/2024 12:47 PM WATER PUMP SERVICER EXAM: DX CHEST AP OR PA AND LATERAL 2 VIEWS COMPARISON: None FINDINGS: The heart size and the pulmonary vascularity are within normal limits. There is no pneumothorax. No acute airspace opacity is observed. Flattening of the bilateral hemidiaphragms and a barrel-shaped chest. Procedure Note Reece Oneill M.D. - 06/04/2024 EXAM: DX CHEST AP OR PA AND LATERAL 2 VIEWS COMPARISON: None FINDINGS: The heart size and the pulmonary vascularity are within normallimits. There is no pneumothorax. No acute airspace opacity is observed.Flattening of the bilateral hemidiaphragms and a barrel-shaped chest. IMPRESSION: 1. No pneumothorax. 2. No acute airspace disease. 3. Chronic emphysema Haley Yang P.A.-C., P.A. IMG DIAGNOSTIC IMAGI NG PROCEDURES Final Result * (ABNORMAL) Influenza A/B, SARS CoV-2, PCR, Rapid Symptomatic (05/14/2024 10:50 AM WATER PUMP SERVICER) Influenza A, PCR, Rapid, V Positive(A) Negative 05/14/2024 10:54 AM WATER PUMP SERVICER NPRG Influenza B, PCR, Rapid, V Negative Negative 05/14/2024 10:54 AM WATER PUMP SERVICER NPRG SARS CoV-2, PCR, Rapid, V Undetected Undetected 05/14/2024 10:54 AM WATER PUMP SERVICER NPRG Infl A/B, SARS CoV-2, PCR, Source Swab, Nasopharynx 05/14/2024 10:53 AM WATER PUMP SERVICER NPRG Swab (Nasopharynx) 05/14/2024 10:50 AM WATER PUMP SERVICER 05/14/2024 10:53 AM WATER PUMP SERVICER Henrietta Montes APRN, C.N.P. LAB MICROBIOLOGY - G ENERAL ORDERABLES Final Result [facility] [address] [place] [address], [place] NPRG [facility] [address] [place] [address] from Last 3 Months Insurance [facility] MEDIC[facility] Care Teams Maintenance Planning Clerk Relationship Specialty Start Date End Date Filippo William M.D. [address] [place] [phone] PCP - General Family Medicine 05/14/24
--- OUTSIDE RECORDS SUMMARY | 2024-06-05 03:22 | XMS_ITS | Encounter Summary ---
Author Organization [facility] Address [address] [place] [address] Care Team Providers Care Dedicated Local Truck Driver Name Role Phone Filippo William M.D. Primary Care Provider [phone] [phone] Reason for Visit * Reason Comments Cough Patient presents wit h on-going cough. Notes she had Influenza A six weeks ago but continues to have a cough that keeps her up at night. Encounter Details Date Type Department Care Team (Late st Contact Info) Description 06/04/2024 11:44 AM STITCHING MACHINE OPERATOR - 06/04/2024 12:47 PM STITCHING MACHINE OPERATOR Emergency [facility] [address] [place] [phone] Haley Yang P.A.-Phoebe., P.A. [address] [place] [phone] Cough Subacute (Primary Dx) Discharge Disposition: Home or Self Care Social [...] on file Legal Sex Female 1:22 PM STITCHING MACHINE OPERATOR Gender Identity Not on file Sexual Orientation Not on file documented as of this encounter Last Filed Vital Signs Vital Sign Reading Time Taken Comments Blood Pressure 173/81 06/04/2024 10:50 AM STITCHING MACHINE OPERATOR Pulse 72 06/04/2024 10:50 AM STITCHING MACHINE OPERATOR Temperature 36.4 C (97.5 F) 06/04/2024 10:50 AM STITCHING MACHINE OPERATOR Respiratory Rate 16 06/04/2024 10:50 AM STITCHING MACHINE OPERATOR Oxygen Saturation 97% 06/04/2024 10:50 AM STITCHING MACHINE OPERATOR Inhaled Oxygen Concentration - - Weight 46.5 kg (102 lb 8.2 oz) 06/04/2024 10:51 AM STITCHING MACHINE OPERATOR Height 170.2 cm (5' 7) 06/04/2024 10:51 AM STITCHING MACHINE OPERATOR Body Mass Index 16.06 06/04/2024 10:51 AM STITCHING MACHINE OPERATOR documented in this encounter Medications at Time of Discharge albuterol 90 mcg/actuation inhaler Inhale 2 puffs every 6 (six) hours as needed for wheezing or shortness of breath (Cough). 18 g 11 05/14/2024 albuterol 90 mcg/actuation inhaler Inhale 2 puffs every 6 (six) hours as needed for wheezing. 6.7 g 06/04/2024 codeine-guaiFENe sin (Robitussin AC) 10-100 mg/5 mL liquid Take 5 mL by mouth every 6 (six) hours as needed for cough. 118 mL 06/04/2024 documented as of this encounter Progress Notes * Haley Yang P.A.-Phoebe., P.A. - 06/04/2024 12:47 PM CST SUBJECTIVE CHIEF COMPLAINT / REASON FOR VISIT Cough (Patient presents with on-going cough. Notes she had Influenza A six weeks ago but continues to have a cough that keeps her up at night. ) HISTORY OF PRESENT ILLNESS Patient presents to urgent care today for evaluation of cough. Pt was diagnosed with influenza A on05/14/24 which was three weeks ago. She had completed course of prednisone and has been using inhaler. She also was using robitussin with codeine at night as cough had been keeping her up at night. Patient states that she had been feeling improvement in symptoms. However, the past few days cough hasbeen worsening. She has noted wheezing and SOB. Denies fever. Cough is worse at night when laying down and patient states she was up all night due to the cough. She has attempted to use robitussin OTC and tylenol cold/flu and states neither was helpful to control the cough and allow her to sleep. Denies chest pain. Does have PND, but no sinus pain or pressure. Pt is out of cough medication with codeine and is requesting to have this refilled. The patient's social and medical history was reviewed in the electronic medical record. ALLERGIES/CONTRAINDICATIONS Allergies[1] OBJECTIVE VITAL SIGNS BP (!) 173/81 Pulse 72 Temp 36.4 ??C (Temporal) Resp 16 Ht 170.2 cm Wt 46.5 kg SpO2 97% No BMI 16.06 kg/m?? PHYSICAL EXAMINATION General: Patient is alert and in no acute distress. HEENT: Pupils PERRLA. Conjunctivae clear without hemorrhages or exudates. Auditory canals normal without erythema or edema. TMs pearly ambrocio and intact without erythema. Oral cavity adequately hydrated. Posterior pharynx normal without erythema or drainage present. Neck: Supple without lymphadenopathy. Respiratory: effort is easy. Lung sounds are clear to auscultation. Cardiovascular: S1, S2 present. Normal rate and rhythm. Musculoskeletal: Grossly intact. No deformities noted. Skin: Normal color, temperature and moisture. No rashes or lesions noted. DIAGNOSTICS Labs: No results found for this or any previous visit (from the past 24 hours). Imaging: DX Chest AP or PA and Lateral 2 Views Result Date: 06/04/2024 Impression: 1. No pneumothorax. 2. No acute airspace disease. 3. Chronic emphysema Curb 65 ASSESSMENT / PLAN #1 Cough Subacute - DX Chest AP or PA and Lateral 2 Views; Standing - DX Chest AP or PA and Lateral 2 Views Other orders - codeine-guaiFENesin (Robitussin AC) 10-100 mg/5 mL liquid; Take 5 mL by mouth every 6 (six) hoursas needed for cough., Starting e 06/04/2024, Print - albuterol 90 mcg/actuation inhaler; Inhale 2 puffs every 6 (six) hours as needed for wheezing., Starting Mon06/04/2024, NormalMay substitute generic Proair, generic Ventolin or generic Proventil asappropriate for patient or insurance preference Chest xray obtained, showed chronic emphysema, was otherwise negative for acute findings. Reviewed continued symptomatic care recommendations. Discussed with patient I will refill the coedine cough medication today, but further refills will need to come from PCP. She is also advised on risks of medication and recommended to use at night time only when she is having trouble sleeping. She can use OTC cough drops. Patient had previously beenprescribed tessalon Elva, states that it was not helpful and caused a rash. Keep follow up appointment with PCP. Return to ED if new or worsening symptoms. Symptomatic treatments were discussed. Cover your cough. Wash hands frequently. Concerning symptoms to watch for were discussed. If new or concerning symptoms develop, seek medical attention. Patient verbalizes understanding and acceptance of this plan of care and denies any further needs or questions at this time. aHley Yang P.A.-C., P.A. [1] No Known Allergies Haley Yang P.A.-C., P.A. 06/04/24 1301 CHING MACHINE OPERATOR documented in this encounter Plan of Treatment Upcoming Encounters Date Type Department Care Team (Late st Contact Info) Description 06/25/2024 10:40 AM CDT Office Visit Department of Family Medicine in [place], [place] [address] [place] [address] Filippo William M.D. [address] [place] [phone] documented as of this encounter Procedures Procedure Name Priority Date/Time Associated Diagnosis Comments DX CHEST AP OR PA AND LATERAL 2 VIEWS RAD - Semiurgent (Fast; most ED patients; some inpatients) 06/04/2024 12:40 PM STITCHING MACHINE OPERATOR Cough Subacute documented in this encounter Results * DX Chest AP or PA and Lateral 2 Views (06/04/2024 12:40 PM STITCHING MACHINE OPERATOR) Anatomical Region Laterality Modality Chest, Thoracic RST LOS, Tho racic ARZ LOS, Thoracic FLA LOS N/A Digital Radiography Impressions 06/04/2024 12:47 PM STITCHING MACHINE OPERATOR 1. No pneumothorax. 2. No acute airspace disease. 3. Chronic emphysema Narrative 06/04/2024 12:47 PM STITCHING MACHINE OPERATOR EXAM: DX CHEST AP OR PA AND [...] IMG DIAGNOSTIC IMAGI NG PROCEDURES Final Result documented in this encounter Visit Diagnoses Diagnosis Cough Subacute- Primary documented in this encounter Care Teams Dedicated Local Truck Driver Relationship Specialty Start Date End Date Filippo William M.D. [address] [place] [address] PCP - General Family Medicine 05/14/24 documented as of this encounter
[2024-06-05 03:24] VITALS: BP 134/75; PULSE 59; RESP 20; TEMP 36.3; O2SAT 99; BMI 17.2
--- NOTE | 2024-06-05 03:39 | CRLHL7_ITS ---
For Patients: As a result of the Century Cures Act, medical imaging exams and procedure reports are released immediately into your electronic medical record. You may view this report before your referring provider. If you have questions, please contact your health care provider. INDICATION: Cough and dyspnea. COMPARISON: Chest radiograph 06/04/2024 TECHNIQUE: CT chest without contrast. Multiplanar axial, coronal, and sagittal reformats are included. MIP images to improve detection of pulmonary nodules are included. Intravenous contrast: None FINDINGS: Airway: Normal caliber of the trachea. There is some smooth circumferential bronchial wall thickening in the lung bases. Lungs: Moderate to severe centrilobular emphysema. There are few small centrilobular nodules in the lingula, right middle lobe, and anterolateral basilar right lower lobe. There are few small nodules measuring up to about 5 millimeters. See series 3, image 79 for example in the left lower lobe. In the right upper lobe there is a subsolid opacity that measures 1.3 x 2.6 cm, with the solid component measuring about 4 millimeters best seen on coronal image series 4, image 46. No large focal consolidation/pneumonia. No pulmonary edema. Pleura: No pleural effusion. No pneumothorax. Lymph nodes: No thoracic adenopathy. Mediastinum: No pneumomediastinum. No mass. Heart and great vessels: No pericardial effusion. Normal cardiac chamber size. Scattered atherosclerotic plaques. No aortic aneurysm. Normal caliber main pulmonary artery. Chest wall: Very little subcutaneous fat. Upper abdomen: Small amount of focal fat at the falciform ligament. Bones: L1 superior endplate compression fracture with about 10-20 percent loss of height is age-indeterminate without remote comparison but has not changed since yesterday`s chest radiograph. No paraspinal hematoma. No other acute or healing fractures. No focal bone lesions. IMPRESSION: 1. Emphysema, bronchitis, and infectious distal airways disease. 2. Ground-glass opacity and small nodules. Per the Fleischner Society criteria recommend a follow-up chest CT in 3-6 months. 3. Age-indeterminate mild L1 superior endplate compression fracture. Please note that all CT scans at this facility use dose modulation, iterative reconstruction, and/or weight-based dosing when appropriate to reduce radiation dose to as low as reasonably achievable. Dictated by Sonia Mary MD @ 06/05/2024 4:20:54 AM (Electronically Signed)
--- OUTSIDE RECORDS SUMMARY | 2024-06-05 03:46 | XMS_ITS | Encounter Summary ---
Author Organization [facility] Address [address] [place] [address] Care Team Providers Care Work Order Detailer Name Role Phone Filippo William M.D. Primary Care Provider [phone] [phone] Reason for Visit * Reason Comments Cough 73 yo presents for e garcia of 7 days of cough and feeling SOB. Is concerned she has covid. Encounter Details Date Type Department Care Team ([facility] st Contact Info) Description 05/14/2024 11:11 AM JUNIOR SOFTWARE ENGINEER - 05/14/2024 11:45 AM JUNIOR SOFTWARE ENGINEER Emergency [facility] [facility] [address] [place] [phone] Henrietta Montes APRN, C.N.P. [address] [place] [phone] Influenza (Primary Dx); Elevated Blood Pressure; [...] on file Legal Sex Female 1:22 PM JUNIOR SOFTWARE ENGINEER Gender Identity Not on file Sexual Orientation Not on file documented as of this encounter Last Filed Vital Signs Vital Sign Reading Time Taken Comments Blood Pressure 145/101 05/14/2024 10:47 AM JUNIOR SOFTWARE ENGINEER Pulse 79 05/14/2024 10:47 AM JUNIOR SOFTWARE ENGINEER Temperature 36.5 C (97.7 F) 05/14/2024 10:47 AM JUNIOR SOFTWARE ENGINEER Respiratory Rate 20 05/14/2024 10:4 7 AM JUNIOR SOFTWARE ENGINEER Oxygen Saturation 96% 05/14/2024 10: 47 AM JUNIOR SOFTWARE ENGINEER Inhaled Oxygen Concentration - - Weight 46.2 kg (101 lb 13.6 oz) 025 10:48 AM JUNIOR SOFTWARE ENGINEER Height - - Body Mass Index - - documented in this encounter Discharge Instructions * Discharge Instructions* Henrietta Montes APRN, C.N.P. - 05/14/2024 11:30 AM JUNIOR SOFTWARE ENGINEER You have been diagnosed with influenza a today. You were seen in [facility] urgent care. Best treatment is rest, concentrate [...] abdominal pain or any other emergent concern. OR SOFTWARE ENGINEER OR SOFTWARE ENGINEER * Attachments The following attachments cannot be sent through Care Everywhere. * Influenza Adult [id number]-Tfjx (Citizen Of [place]) * Hypertension Adult Uqxs-xq-Ccao (Citizen Of [place]) * Cough Adult Uqlg-ow-Kaak (Citizen Of [place]) documented in this encounter Medications at Time [...] discussed and reviewed in AVS. Discharged from [facility] in stable independent ambulatory fatigued condition. Henrietta Montes APRN, C.N.P. 05/14/24 1136 OR SOFTWARE ENGINEER documented in this encounter Plan of Treatment Upcoming Encounters Date Type Department Care Team (Late st Contact Info) Description 06/25/2024 10:40 AM CDT Office Visit Department of Family Medicine in [place], [place] [address] [place] [address] Filippo William M.D. [address] [place] [phone] documented as of this encounter Procedures Procedure Name Priority Date/Time Associated Diagnosis Comments IFLU A, B, SARS COV-2, PCR, RAPID,V STAT 05/14/2024 10:50 AM JUNIOR SOFTWARE ENGINEER documented in this encounter Results * (ABNORMAL) Influenza A/B, SARS CoV-2, PCR, Rapid Symptomatic (05/14/2024 10:50 AM JUNIOR SOFTWARE ENGINEER) Influenza A, PCR, Rapid, V Positive(A) Negative 05/14/2024 10:54 AM JUNIOR SOFTWARE ENGINEER NPRG Influenza B, PCR, Rapid, V Negative Negative 05/14/2024 10:54 AM JUNIOR SOFTWARE ENGINEER NPRG SARS CoV-2, PCR, Rapid, V Undetected Undetected 05/14/2024 10:54 AM JUNIOR SOFTWARE ENGINEER NPRG Infl A/B, SARS CoV-2, PCR, Source Swab, Nasopharynx 05/14/2024 10:53 AM JUNIOR SOFTWARE ENGINEER NPRG Swab (Nasopharynx) 05/14/2024 10:50 AM JUNIOR SOFTWARE ENGINEER 05/14/2024 10:53 AM JUNIOR SOFTWARE ENGINEER us Henrietta Montes APRN, C.N.P. LAB MICROBIOLOGY - G ENERAL ORDERABLES Final Result [facility] [address] [place] [address], [facility] NPRG [facility] [address] [place] [address] documented in this encounter Visit Diagnoses Diagnosis Influenza- Primary Elevated Blood Pressure Cough Acute documented in this encounter Administered Medications Inactive Administered Medications - up to 3 most recent administrations Medication Order MAR Action Action Date Dose Rate Site ipratropium-albuteroL 0.5-2.5 mg/3 mL nebulizer solution 3 mL (DuoNeb) 3 mL, nebulization, Once, On Mon05/14/24 at 1122, For 1 dose Given 05/14/2024 11:25 AM JUNIOR SOFTWARE ENGINEER 3 mL documented in this encounter Active and Recently Administered Medications Times are shown in JUNIOR SOFTWARE ENGINEER. Scheduled Medication Order 05/12/2024 05/13/2024 05/14/2024 ipratropium-albuteroL 0.5-2.5 mg/3 mL nebulizer solution 3 mL (DuoNeb) (COMPLETED) 3 mL, nebulization, Once, On Mon05/14/24 at 1122, For 1 dose 1125 (Given - Provid er: Germania Quinn R.N.) documented in this encounter Additional Health Concerns Infection Onset Date Last Indicated Resolved Time COVID19 Pending 05/14/2024 05/14/2024 05/14/2024 1 1:14 AM JUNIOR SOFTWARE ENGINEER Influenza 05/14/2024 05/14/2024 05/21/2024 6:32 AM JUNIOR SOFTWARE ENGINEER documented as of this encounter Care Teams Work Order Detailer Relationship Specialty Start Date End Date Filippo William M.[place]. [place] [address] PCP - General Family Medicine 05/14/24 documented as of this encounter
--- OUTSIDE RECORDS SUMMARY | 2024-06-05 03:46 | XMS_ITS | Encounter Summary ---
Author Organization [facility] Address [address] [place] [address] Care Team Providers Care Kennel Supervisor Name Role Phone Filippo William M.D. Primary Care Provider [phone] [phone] Reason for Referral * Outpatient (Routine) - Authorized Specialty Diagnoses / Procedures Referred By Promise echevarria Referred To Contact Family Medicine Filippo William M.D. [address] [place] [address] Phone: tel: fax: [facility] Referral ID Status Reason Start Date Expiration Date V isits Requested Visits Authorized [id number] Authorized 05/21/2024 11/20/2025 1 1 F NURSE ANESTHETIST Reason for Visit * Reason Comments Establish Care With [facility] before. [facility]. * Appointment Request (Routine) - Closed Specialty Diagnoses / Procedures Referred By Promise echevarria Referred To Contact Family Medicine Referral ID Status Reason Start Date Expiration Date Visits Re quested Visits Authorized [id number] Closed 05/13/2024 08/13/2025 1 1 Encounter Details Date Type Department Care Team (Latest Contact Info) Description 05/21/2024 8:00 AM STAFF NURSE ANESTHETIST Comprehensive Visit Department of Family Medicine in [place], [place] [address] [place] [address] Filippo William M.D. [address] [place] [address] Elevated Blood Pressure (Primary Dx) [...] on file Legal Sex Female 1:22 PM STAFF NURSE ANESTHETIST Gender Identity Not on file Sexual Orientation Not on file documented as of this encounter Last Filed Vital Signs Vital Sign Reading Time Taken Comments Blood Pressure 181/76 05/21/2024 7:53 AM STAFF NURSE ANESTHETIST Pulse 62 05/21/2024 7:53 AM STAFF NURSE ANESTHETIST Temperature 35.2 C (95.4 F) 05/21/2024 7:53 AM STAFF NURSE ANESTHETIST Respiratory Rate - - Oxygen Saturation 97% 05/21/2024 7:53 AM STAFF NURSE ANESTHETIST Inhaled Oxygen Concentration - - Weight 46.4 kg (102 lb 6.4 oz) 05/21/2024 7:53 A M STAFF NURSE ANESTHETIST Height 170 cm (5' 6.93) 05/21/2024 7:53 AM STAFF NURSE ANESTHETIST Body Mass Index 16.07 05/21/2024 7:53 AM STAFF NURSE ANESTHETIST documented in this encounter Progress Notes * Filippo William M.D. - 05/21/2024 8:00 AM CST SUBJECTIVE CHIEF COMPLAINT/REASON FOR VISIT Chief Complaint Patient presents with Establish Care With [facility] before. [facility]. HISTORY OF PRESENT ILLNESS Afsaneh Uribe [...] any interventions towards cessation of smoking today. F NURSE ANESTHETIST documented in this encounter Plan of Treatment Upcoming Encounters Date Type Department Care Team (Late st Contact Info) Description 06/25/2024 10:40 AM CDT Office Visit Department of Family Medicine in [place] [address] [place] [address] Filippo William M.D. [address] [place] [phone] Scheduled Referrals Name Type Priority Associated Diagnoses Orde r Schedule Family Medicine office visit (clinic) Outpatient Referral Routine Expected: 06/18/2024, Expires: 08/18/2025 documented as of this encounter Visit Diagnoses Diagnosis Elevated Blood Pressure- Primary documented in this encounter Care Teams Kennel Supervisor Relationship Specialty Start Date End Date Filippo William M.D. [address] [place] [facility] [place] [address] PCP - General Family Medicine 05/14/24 documented as of this encounter
--- OUTSIDE RECORDS SUMMARY | 2024-06-05 03:46 | XMS_ITS | Encounter Summary ---
Author Organization [facility] Address [address] [place] [address] Care Team Providers Care Research Executive Name Role Phone Filippo William M.D. Primary Care Provider [phone] [phone] Reason for Visit * Reason Onset Date Comments Med Refill 05/31/2024 Encounter Details Date Type Department Care Team (Late st Contact Info) Description 05/31/2024 Refill Department of Family Medicine in [place], [place] [address] [place] [address] Filippo William M.D. [address] [place] [phone] Med Refill Social History Tobacco Use Types Packs/Day Years Used Date Smoking Tobacco: Former Cigarettes Smokeless Tobacco: Never Alcohol Use Standard Drinks/Week Comments Yes 0 (1 standard drink = 0.6 oz pur e alcohol) Dental Answer Date Recorded Dental: Regular Dentist Unknown 05/13/19 Comments No Sex and Gender Information Value Date Recorded Sex Assigned at Not on file Legal Sex Female 1:22 PM TAKER OFF DRYING KILN Gender Identity Not on file Sexual Orientation Not on file documented as of this encounter Miscellaneous Notes * Telephone Encounter - Kierra Aldrich L.PRohitNRohit - 05/31/2024 3:51 PM TAKER OFF DRYING KILN R: Prescription pended for refill. Would like [...] 05/21/2024 Future Appointment: 06/25/2024 Pharmacy Verified: Yes R OFF DRYING KILN documented in this encounter Plan of Treatment Upcoming Encounters Date Type Department Care Team (Late st Contact Info) Description 06/25/2024 10:40 AM CDT Office Visit Department of Family Medicine in [place], [place] [address] [place] [address] Filippo William M.D. [address] [place] [phone] documented as of this encounter Visit Diagnoses Not on filedocumented in this encounter Care Teams Research Executive Relationship Specialty Start Date End Date Filippo William M.D. [address] [place] [phone] PCP - General Family Medicine 05/14/24 documented as of this encounter
--- OUTSIDE RECORDS SUMMARY | 2024-06-05 03:46 | XMS_ITS | Encounter Summary ---
Author Organization [facility] Address [address] [place] [address] Care Team Providers Care Accounts Receivable Collector Name Role Phone Filippo William M.D. Primary Care Provider [phone] [phone] Reason for Visit * Reason Comments Cough I'm just here to ge t a refill on my cough syrup. Encounter Details Date Type Department Care Team (Late st Contact Info) Description 05/20/2024 10:56 AM TECHNICAL SPECIALIST CYTOGENETICS - 05/20/2024 12:24 PM TECHNICAL SPECIALIST CYTOGENETICS Emergency [facility] [address] [place] [address] Antoinette Thomas APRN, C.N.P., M.S.N. [address] [place] [address] Influenza (Primary Dx); Wheezing; Folliculitis [...] on file Legal Sex Female 1:22 PM TECHNICAL SPECIALIST CYTOGENETICS Gender Identity Not on file Sexual Orientation Not on file documented as of this encounter Last Filed Vital Signs Vital Sign Reading Time Taken Comments Blood Pressure 161/71 05/20/2024 10:59 AM TECHNICAL SPECIALIST CYTOGENETICS Pulse 80 05/20/2024 10:59 AM TECHNICAL SPECIALIST CYTOGENETICS Temperature 37.3 C (99.1 F) 05/20/2024 10:59 AM TECHNICAL SPECIALIST CYTOGENETICS Respiratory Rate 20 05/20/2024 10:59 AM TECHNICAL SPECIALIST CYTOGENETICS Oxygen Saturation 98% 05/20/2024 10:59 AM TECHNICAL SPECIALIST CYTOGENETICS Inhaled Oxygen Concentration - - Weight 49.9 kg (110 lb) 05/20/2024 10:57 AM TECHNICAL SPECIALIST CYTOGENETICS Height - - Body Mass Index - [...] Antoinette Thomas APRN, C.NMaurice, M.S.N. 05/20/24 1223 NICAL SPECIALIST CYTOGENETICS NICAL SPECIALIST CYTOGENETICS documented in this encounter ED Notes * [...] by: Dilma Carmen R.N. 05/20/24 11:45 AM TECHNICAL SPECIALIST CYTOGENETICS Dilma Carmen R.N. 05/20/24 1147 NICAL SPECIALIST CYTOGENETICS documented in this encounter Plan of Treatment Upcoming Encounters Date Type Department Care Team (Late st Contact Info) Description 06/25/2024 10:40 AM CDT Office Visit Department of Family Medicine in [place] [address] [place] [address] [address] M[address] [place] [facility] [place] [address] documented as of this encounter Visit Diagnoses Diagnosis Influenza- Primary Influenza Wheezing Folliculitis Wheezing Folliculitis documented in this encounter Additional Health Concerns Infection Onset Date Last Indicated Resolved Time Influenza 05/14/2024 05/14/2024 05/21/2024 6:32 AM TECHNICAL SPECIALIST CYTOGENETICS documented as of this encounter Care Teams Accounts Receivable Collector Relationship Specialty Start Date End Date Filippo William M.D. [address] [place] [facility] [place] [address] PCP - General Family Medicine 05/14/24 documented as of this encounter
--- OUTSIDE RECORDS SUMMARY | 2024-06-05 03:46 | XMS_ITS | Encounter Summary ---
Author Organization [facility] Address [address] [place] [address] Care Team Providers Care Risk Control Manager Name Role Phone Filippo William M.D. Primary Care Provider [phone] Reason for Visit * Reason Comments Cough Patient presents wit h on-going cough. Notes she had Influenza A six weeks ago but continues to have a cough that keeps her up at night. Encounter Details Date Type Department Care Team (Late st Contact Info) Description 06/04/2024 11:44 AM PLATING ENGINEER - 06/04/2024 12:47 PM PLATING ENGINEER Emergency [place] [facility] [address] [place] [phone] Haley Yang P.A.-Phoebe., P.A. [address] [place] [phone] Cough Subacute (Primary Dx) Discharge Disposition: Home [...] on file Legal Sex Female 1:22 PM PLATING ENGINEER Gender Identity Not on file Sexual Orientation Not on file documented as of this encounter Last Filed Vital Signs Vital Sign Reading Time Taken Comments Blood Pressure 173/81 06/04/2024 10:50 AM PLATING ENGINEER Pulse 72 06/04/2024 10:50 AM PLATING ENGINEER Temperature 36.4 C (97.5 F) 06/04/2024 10:50 AM PLATING ENGINEER Respiratory Rate 16 06/04/2024 10:50 AM PLATING ENGINEER Oxygen Saturation 97% 06/04/2024 10:50 AM PLATING ENGINEER Inhaled Oxygen Concentration - - Weight 46.5 kg (102 lb 8.2 oz) 06/04/2024 10:51 AM PLATING ENGINEER Height 170.2 cm (5' 7) 06/04/2024 10:51 AM PLATING ENGINEER Body Mass Index 16.06 06/04/2024 10:51 AM PLATING ENGINEER documented in this encounter Medications at Time [...] further needs or questions at this time. Haley Ynag P.A.-C., P.A. [1] No Known Allergies Haley Yang P.A.-C., P.A. 06/04/24 1301 ING ENGINEER documented in this encounter Plan of Treatment Upcoming Encounters Date Type Department Care Team (Late st Contact Info) Description 06/25/2024 10:40 AM CDT Office Visit Department of Family Medicine in [place], [place] [address] [place] [address] Filippo William M.D. [address] [place] [address] documented as of this encounter Procedures Procedure Name Priority Date/Time Associated Diagnosis Comments DX CHEST AP OR PA AND LATERAL 2 VIEWS RAD - Semiurgent (Fast; most ED patients; some inpatients) 06/04/2024 12:40 PM PLATING ENGINEER Cough Subacute documented in this encounter Results * DX Chest AP or PA and Lateral 2 Views (06/04/2024 12:40 PM PLATING ENGINEER) Anatomical Region Laterality Modality Chest, Thoracic RST LOS, Tho racic ARZ LOS, Thoracic FLA LOS N/A Digital Radiography Impressions 06/04/2024 12:47 PM PLATING ENGINEER 1. No pneumothorax. 2. No acute airspace disease. 3. Chronic emphysema Narrative 06/04/2024 12:47 PM PLATING ENGINEER EXAM: DX CHEST AP OR PA AND [...] Primary documented in this encounter Care Teams Risk Control Manager Relationship Specialty Start Date End Date Filippo William M.D. [address] [place] [address] PCP - General Family Medicine 05/14/24 documented as of this encounter
--- OUTSIDE RECORDS SUMMARY | 2024-06-05 03:46 | XMS_ITS | Encounter Summary ---
Author Organization [facility] Address [address] [place] [address] Care Team Providers Care Textile Artist Name Role Phone Filippo William M.D. Primary Care Provider [phone] Reason for Visit * Reason Onset Date Comments Med Refill 05/20/2024 Encounter Details Date Type Department Care Team (Late st Contact Info) Description 05/20/2024 Refill Department of Family Medicine in [place], [place] [address] [place] [address] Filippo William M.D. [address] [place] [phone] Med Refill Social History Tobacco Use Types [...] on file Legal Sex Female 1:22 PM HEALTH PROMOTION SPECIALIST Gender Identity Not on file Sexual Orientation Not on file documented as of this encounter Miscellaneous Notes * Telephone Encounter - Gladys Vu R.N. - 05/20/2024 10:06 AM HEALTH PROMOTION SPECIALIST Informed patient that provider would need to see her prior to any prescription, provider also not in clinic today. Patient previously [facility] a provider [facility], but hadn't been in for a few years so notseeing anyone regularly. TH PROMOTION SPECIALIST documented in this encounter Plan of Treatment Upcoming Encounters Date Type Department Care Team (Late st Contact Info) Description 06/25/2024 10:40 AM CDT Office Visit Department of Family Medicine in [place], [place] [address] [place] [address] Filippo William M.D. [address] [place] [phone] documented as of this encounter Visit Diagnoses Not on filedocumented in this encounter Additional Health Concerns Infection Onset Date Last Indicated Resolved Time Influenza 05/14/2024 05/14/2024 05/21/2024 6:32 AM HEALTH PROMOTION SPECIALIST documented as of this encounter Care Teams Textile Artist Relationship Specialty Start Date End Date Filippo William M.D. [address] [place] [phone] PCP - General Family Medicine 05/14/24 documented as of this encounter
--- OUTSIDE RECORDS SUMMARY | 2024-06-05 03:47 | XMS_ITS | Clinical Summary ---
Author Organization [facility] Address [address] [place] [address] Care Team Providers Care Flavorer Name Role Phone Filippo William M.D. Primary Care Provider [phone] Source Comments Patient records contain information from all sites at [facility]. For routine questions regarding patient records, call [phone] during business hours, M-F 8:00 AM - 5:00 PM Central Time. Record requests for emergency care only can be directed to [phone] at any time.[facility] Allergies No known active allergies Medications albuterol [...] Department Care Team Description 06/04/2024 11:44 AM MAGNETIC HEALER - 06/04/2024 12:47 PM [facility] Emergency [place] [facility] [address] [place] [address] Haley Yang P.A.-C., P.A. Cough Subacute (Primary Dx) Discharge Disposition: Home or Self Care 05/31/2024 Refill Department of Family Medicine in [place], [place] [address] [place] [address] Filippo William M.D. Med Refill 05/21/2024 8:00 AM [facility] Comprehensive Visit Department of Family Medicine in [place], [place] [address] [place] [address] Filippo William M.D. Elevated Blood Pressure (Primary Dx) 05/20/2024 10:56 AM MAGNETIC HEALER - 05/20/2024 12:24 PM MAGNETIC HEALER Emergency [place] [facility] [address] [place] [phone] Antoinette Thomas APRN, C.N.P., M.S.N. Influenza (Primary Dx); Wheezing; Folliculitis Discharge Disposition: Home or Self Care 05/20/2024 Refill Department of Family Medicine in [place] [address] [place] [address] Filippo William M.D. Med Refill 05/14/2024 11:11 AM MAGNETIC HEALER - 05/14/2024 11:45 AM [facility] Emergency [place] [facility] [address] [place] [phone] Henrietta Montes APRN C.N.PRohit Influenza (Primary Dx); [...] on file Legal Sex Female 1:22 PM MAGNETIC HEALER Gender Identity Not on file Sexual Orientation Not on file Last Filed Vital Signs Vital Sign Reading Time Taken Comments Blood Pressure 173/81 06/04/2024 10:50 AM MAGNETIC HEALER Pulse 72 06/04/2024 10:50 AM MAGNETIC HEALER Temperature 36.4 C (97.5 F) 06/04/2024 10:50 AM MAGNETIC HEALER Respiratory Rate 16 06/04/2024 10:50 AM MAGNETIC HEALER Oxygen Saturation 97% 06/04/2024 10:50 AM MAGNETIC HEALER Inhaled Oxygen Concentration - - Weight 46.5 kg (102 lb 8.2 oz) 06/04/2024 10:51 AM MAGNETIC HEALER Height 170.2 cm (5' 7) 06/04/2024 10:51 AM MAGNETIC HEALER Body Mass Index 16.06 06/04/2024 10:51 AM MAGNETIC HEALER Plan of Treatment Upcoming Encounters Date Type Department Care Team (Late st Contact Info) Description 06/25/2024 10:40 AM CDT Office Visit Department of Family Medicine in [place], [place] [address] [place] [address] Filippo William M.D. [address] [place] [address] Health Maintenance Due Date Last [...] ED patients; some inpatients) 06/04/2024 12:40 PM MAGNETIC HEALER Cough Subacute IFLU A, B, SARS COV-2, PCR, RAPID,V STAT 05/14/2024 10:50 AM MAGNETIC HEALER from Last 3 Months Results * DX Chest AP or PA and Lateral 2 Views (06/04/2024 12:40 PM MAGNETIC HEALER) Anatomical Region Laterality Modality Chest, Thoracic RST LOS, Tho racic ARZ LOS, Thoracic FLA LOS N/A Digital Radiography Impressions 06/04/2024 12:47 PM MAGNETIC HEALER 1. No pneumothorax. 2. No acute airspace disease. 3. Chronic emphysema Narrative 06/04/2024 12:47 PM MAGNETIC HEALER EXAM: DX CHEST AP OR PA AND [...] CoV-2, PCR, Rapid Symptomatic (05/14/2024 10:50 AM MAGNETIC HEALER) Influenza A, PCR, Rapid, V Positive(A) Negative 05/14/2024 10:54 AM MAGNETIC HEALER [facility] Influenza B, PCR, Rapid, V Negative Negative 05/14/2024 10:54 AM MAGNETIC HEALER [facility] SARS CoV-2, PCR, Rapid, V Undetected Undetected 05/14/2024 10:54 AM MAGNETIC HEALER [facility] Infl A/B, SARS CoV-2, PCR, Source Swab, Nasopharynx 05/14/2024 10:53 AM MAGNETIC HEALER [facility] Swab (Nasopharynx) 05/14/2024 10:50 AM MAGNETIC HEALER 05/14/2024 10:53 AM MAGNETIC HEALER Henrietta Montes APRN, C.N.P. LAB MICROBIOLOGY - G ENERAL ORDERABLES Final Result [facility] [address] [place] [address], [place] [facility] [address] [place] [address] from Last 3 Months Insurance [facility] MEDICARE Care Teams Flavorer Relationship Specialty Start Date End Date Filippo William M.D. [address] [place] [phone] PCP - General Family Medicine 05/14/24
[2024-06-05 03:55] LABS: Basophils Percent Auto 0.5 % (0.0-3.0); Eosinophils Percent Auto 6.6 % (0.0-7.0); Hematocrit 42.9 % (33.0-51.0); Hemoglobin* 13.8 gm/dL (12.0-16.0); Immature Granulocytes Pct Auto 0.2 %; Lymphocytes Percent Auto 14.8 % (20-44); Mean Corpuscular HGB Conc 32 gm/dL (32-36); Mean Corpuscular Hemoglobin 31 pg (26-34); Mean Corpuscular Volume 96 fL (80-100); Neutrophils Percent Auto 70.9 % (42.0-72.0); Platelet Count* 347 K/uL (140-440); RDW Coefficient of Variation % 13.7 % (11.5-15.5); Red Blood Count 4.46 m/uL (4.00-5.20); Slide Review Reflex No; White Blood Count* 12.94 K/uL (4.50-11.00)
[2024-06-05 04:07] LABS: Chloride* 104 mmol/L (96-114); Potassium* 3.7 mmol/L (3.6-5.1); Sodium* 139 mmol/L (135-149)
[2024-06-05 04:09] LABS: Creatinine* 0.6 mg/dL (0.5-1.5); Est. Creatinine Clearance* 39.47; Estimated Glomerular Filt Rate 95 ml/min
[2024-06-05 04:10] LABS: Anion Gap 7 mEq/L (7-15); Blood Urea Nitrogen* 8 mg/dL (7-30); Calcium* 8.8 mg/dL (8.4-10.6); Carbon Dioxide* 28 mmol/L (20-32); Glucose* 140 mg/dL (60-115)
[2024-06-05 04:20] LABS: NT Pro B Type NatriureticPept* 290 pg/mL
[2024-06-05] MEDS: predniSONE 20 MG TABLET 40 MG PO (04:36)
[2024-06-05] MEDS: AMOXICILLIN/CLAVULANATE 875 mg/125 mg TABLET PO (04:36)
[2024-06-05] MEDS: DOXYCYCLINE HYCLATE 100 MG PO (04:36)
--- NOTE | 2024-06-05 11:07 | ED.NURSE ---
[facility] called for clarification of prednisone rx, call forwarded to MD Steele.
== END 2024-06-05 05:06 | disposition home or self-care (01) ==
PROVIDERS: Emergency Provider Family Medicine; PCP Family Medicine
DX: J44.1 Chronic obstructive pulmonary disease with (acute) exacerbation (principal); J22 Unspecified acute lower respiratory infection; R91.1 Solitary pulmonary nodule
CPT/HCPCS: 36415; 71250; 80048; 83880; 85025; 99284; A9270; J7512

== ENCOUNTER 2024-06-17 03:56 | Outpatient (CLI) | payer MEDICARE, BC, SELFPAY | END 2024-06-17 03:57 | disposition home or self-care (01) | PROVIDERS: PCP Family Medicine; Visit Provider Family Medicine | DX: R06.09 Other forms of dyspnea (principal) | CPT/HCPCS: A0425; A0427 ==

== ENCOUNTER 2024-06-17 04:29 | Emergency (ER) | payer MEDICARE, BC, SELFPAY ==
[2024-06-17 04:33] VITALS: BP 147/79; PULSE 65; RESP 22; TEMP 36.7; O2SAT 98
--- NOTE | 2024-06-17 04:57 | ED.SOB ---
HPI - SOB/Dyspnea General Chief Complaint: Shortness of Breath/Dyspnea Stated Complaint: Shortness of Breath Time Seen by Provider: 06/17/24 04:45 Source: patient and EMS Limitations: other (Memory impairment) History of Present Illness HPI Narrative: 74-year-old female with recent diagnosis of COPD presents to the emergency department for evaluation of dyspnea while getting up to go to the bathroom. Unfortunately she has memory impairment and is not much of a historian. She reports that she finished antibiotics and steroids a week ago for a persistent cough. She was diagnosed with influenza a about 2 and half months ago and had been having persistent cough ever since. She does continue to smoke. She reports that she was seen several times in urgent cares, mostly in the [facility]. Her primary care is through [facility], unfortunately I do not have access to those records. I can see that she was evaluated here in our ED on the . She had extensive workup including blood work, chest x-ray and ultimately chest CT. Things looked pretty normal but she was treated with prednisone, Augmentin and was given an albuterol inhaler. She states that tonight she got up to go to the bathroom and felt very short of breath all of a sudden, alerted her . He called 911. 911 at administered a DuoNeb but reports that her oxygen levels were normal and that she was not showing any signs of wheezing. I asked her if she tried the albuterol and she said that she has tried it but it sounds as though she did not try it tonight when she was feeling short of breath. She denies fevers, no fall, trauma or injury. No productive cough, no chest pain. She has not had any recent weakness, loss of appetite or other signs of acute medical changes. Her symptoms improved very quickly with administration of the DuoNeb and she is asymptomatic at this time. Past medical history is notable for recent diagnosis of COPD, sounds like emphysema based on the CT findings. She denies long-term daily medications but has albuterol p.r.n.. Denies drug allergies, does continue to smoke. ROS is notable for the resolved dyspnea only. Otherwise denies times 12 systems. When I asked specifically if this could be anxiety related, she seems apprised by the question but upon pondering, does consider that this could be the cause as well. Related Data Home Medications ?Medication ?Instructions ?Recorded ?Confirmed albuterol sulfate 90 mcg/actuation 2 puff inhalation PRN 06/05/24 aerosol inhaler Previous Rx's ?Medication ?Instructions ?Recorded ipratropium 0.5 mg-albuterol 3 mg 3 ml inhalation Q6H PRN #180 mL 06/17/24 (2.5 mg base)/3 mL nebulization soln Allergies Allergy/AdvReac Type Severity Reaction Status Date / Time No Known Drug Allergies Allergy Verified 06/05/24 03:28 [facility] Social History Smoking Status: Current every day smoker What tobacco products do you use: cigarettes Do you use any of these nicotine containing products: None Second hand tobacco smoke exposure: No How often do you have a drink containing alcohol: never AUDIT-C Alcohol total score: 0 Non-prescribed substance use: denies use Exam Const: Vital Signs, click to edit/add: Vital Signs - 24 hr 06/17/24 04:33 Temperature 98.0 F Pulse Rate [Pulse Oximeter] 65 Respiratory Rate 22 Blood Pressure [Ri ght Upper Arm] 147/79 H Pulse Oximetry 98 Oxygen Delivery Me thod Room Air Documenting provider has reviewed patient's vital signs: yes Common normals: no apparent distress and alert Other: Mild cognitive impairment. Friendly and cooperative. No agitation. Appears well nourished and well hydrated. No cyanosis. HENMT: Common normals: normocephalic, head/scalp atraumatic, moist oral mucous membranes and oropharynx normal Head and scalp: normocephalic and atraumatic Mouth: oral and palatal mucosa normal Eye: Common normals: conjunctivae normal General eye: normal appearance of both eyes Conjunctiva: conjunctiva(e) normal Neck & C-Spine: Common normals: full ROM and no lymphadenopathy Resp: Common normals: normal respiratory effort, no use of accessory muscles and clear to auscultation bilaterally Effort & inspection: able to speak in complete sentences Auscultation: clear to auscultation bilaterally Cardio: Common normals: regular rate, regular rhythm, S1 normal heart sound, S2 normal heart sound and no murmurs Rate: regular rate Rhythm: regular rhythm Heart sounds: S1 normal and S2 normal GI: Common normals: Normal to inspection, nondistended, normoactive bowel sounds present, soft to palpation, non-tender, no hepatosplenomegaly and no masses Palpation: soft and no hepatosplenomegaly Extremity: Common normals: normal to inspection, normal capillary refill and no pedal edema Neuro: Common normals: moves all extremities and no focal motor deficits Sensorium/orientation: alert Speech: speech normal Psych: Attitude: engaged Mood and affect: euthymic mood Insight: limited Judgement: limited Skin: Common normals: no rashes or lesions noted General skin exam: no rashes or lesions noted Course Course ED Course: 74-year-old female presenting with brief episode of dyspnea, quickly resolved. No evidence of hypoxia from EMS. They deny any notable wheezing or true respiratory distress. Extensive recent workup revealed chronic emphysema changes but did not reveal really any acute pathology. I am really questioning if there is any acute pathology here. Swabs were collected for RSV, influenza and COVID. Chest x-ray and EKG will be performed. Blood work will not be repeated. There is no tachycardia, tachypnea or hypoxia. She does not have any hallmarks features of significant infection and has no pertinent findings on exam today. I think that she is at a place with some memory loss where she is having a difficult time with insight into acute symptoms verses anxiety about her more severe symptoms like the influenza earlier this winter. I think that is starting to cloud her judgment of being able to triage her symptoms appropriately. Await clinical findings. Reevaluation(s) Time of Reevaluation #1: 06:32 Reevaluation #1: Patient and spouse counseled on findings. Oxygen levels have remained normal. She remains asymptomatic in the ED. Chest x-ray and viral swabs are reassuring. We spent some time discussing anxiety, baseline COPD. I do think that she has had some worsening lung damage over the last few months from several viral illnesses and has a new baseline that she has not fully come to terms with. Counseled the family on potentially obtaining an oximeter to help them triaged at home. I would like for them to make a follow-up with a primary care doctor to discuss long-term COPD therapy. I did stress the importance of smoking cessation. reports that she has felt better after nebulizer treatments in the past. They have a home nebulizer machine and plenty of tubing kits. They happened to be out of the medication. I am happy to prescribed a prescription for this. We discussed proper use of that medication and indications to come to the ED. Written instructions provided. All questions answered. Vital Signs Vital signs: Initial Vital Signs Temperature 98.0 F 06/17/24 04:33 Temperature Source Temporal Artery Scan 06/17/24 04:33 Pulse Rate 65 06/17/24 04:33 Respiratory Rate 22 06/17/24 04:33 Blood Pressure 147/79 H 06/17/24 04:33 Blood Pressure Mean 101 06/17/24 04:33 Blood Pressure Position Supine 06/17/24 04:33 Pulse Oximetry 98 06/17/24 04:33 Oxygen Delivery Method Room Air 06/17/24 04:33 Vital Signs Temperature 98.0 F 06/17/24 04:33 Pulse Rate 65 06/17/24 04:33 Respiratory Rate 22 06/17/24 04:33 Blood Pressure 147/79 H 06/17/24 04:33 Pulse Oximetry 98 06/17/24 04:33 Oxygen Delivery Method Room Air 06/17/24 04:33 Temperature 98.0 F 06/17/24 04:33 Pulse Rate 65 06/17/24 04:33 Respiratory Rate 22 06/17/24 04:33 Blood Pressure 147/79 H 06/17/24 04:33 Pulse Oximetry 98 06/17/24 04:33 Oxygen Delivery Method Room Air 06/17/24 04:33 MDM - SOB/Dyspnea Differential Diagnosis Differential diagnosis: Likely acute exacerbation of chronic obstructive airways disease, congestive heart failure, community acquired pneumonia, asthma with exacerbation and pulmonary embolism Medical Records Attestation: I reviewed the patient's medical records. Lab Data Attestation: I reviewed the patient's lab results. Lab results narrative: Viral swabs negative Labs: Lab Results 06/17/24 Range/Units 04:35 SARS-CoV-2 (PCR) Negative SARS-CoV-2 (Negative) Influenza Type A (PCR) Negative PCR FLU A (Negative) Influenza Type B (PCR) Negative PCR FLU B (Negative) RSV (PCR) Negative PCR RSV (Negative) Imaging Data Chest x-ray: Attestation: I have reviewed the pertinent imaging results. My impression: Chronic emphysema findings but no acute findings. Comparison from just a few weeks ago. Radiologist's impression: IMPRESSION: No acute findings. Dictated by Aura Augustin MD @ 06/17/2024 6:09:24 AM ECG Data Attestation: I personally reviewed and interpreted this ECG as follows: Interpretation: Sinus rhythm with a rate of 64. No significant ST or T-wave abnormalities. Normal R-wave progression, normal intervals and axis. Normal EKG Discharge Plan Discharge Clinical Impression: Emphysema of lung Patient Disposition: Home w/ Parent or Adult Condition: Improved Instructions: Emphysema (DC) Additional Instructions: As we discussed, there are no signs of a new infection or flare up today. I think that you are having some anxiety that is causing you to have worsening shortness of breath symptoms when you exert your self. I think some of this is residual from your recent bout of influenza. Unfortunately when you have chronic lung disease from smoking, illnesses like influenza can decrease her lung capacity long-term. I think that where you are breathing now is your ?new normal?. In the future, if you get these episodes, you should try 2 puffs of your albuterol and weight about 10 minutes. If her symptoms have not improved, try another puff and wait a few more minutes. Will be helpful if you had a way to check your oxygen levels or heart rate at home. This may better help you understand if you really need to call 911 or go to an emergency room for your breathing. At this time, no treatment is needed other than continuing use of your albuterol as needed on an emergency basis. I will send a prescription for some new nebulizer vials to your pharmacy for you. It is okay to use 1 of those nebulizer solutions before bed to help prevent shortness of breath as well. I would like for you to schedule follow-up appointment with a primary care provider to discuss long-term treatment for your emphysema to reduce flare-ups in the future and decrease further loss of your lung function. Most importantly though, quitting smoking will give you the best chance at preserving your remaining lung function. Activity Level: No Restrictions Discharge Diet: Regular Prescriptions: New ipratropium-albuterol 0.5 mg-3 mg(2.5 mg base)/3 mL solution for nebulization 3 ml inhalation Q6H PRNQty: 180 8RF No Action albuterol sulfate 90 mcg/actuation HFA aerosol inhaler 2 puff INHALATION PRN Patient Comments: [NO ORIGINAL SIG] Follow Up/Referrals: Júnior Frazier MD [Primary Care Provider] - Stand Alone Forms: MyHealth Info Instructions
[2024-06-17 05:18] LABS: PCR FLU A Negative PCR FLU A (Negative); PCR FLU B Negative PCR FLU B (Negative); PCR RSV Negative PCR RSV (Negative); SARS PCR* Negative SARS-CoV-2 (Negative)
[2024-06-17 06:37] VITALS: BP 132/72; PULSE 67; RESP 18; O2SAT 95
== END 2024-06-17 06:39 | disposition home or self-care (01) ==
PROVIDERS: Emergency Provider Family Medicine; PCP Family Medicine
DX: J43.8 Other emphysema (principal)
CPT/HCPCS: 71046; 87631; 93005; 99284

== ENCOUNTER 2024-10-22 05:46 | Emergency (ER) | payer MEDICARE, BC, SELFPAY ==
--- OUTSIDE RECORDS SUMMARY | 2024-10-22 05:48 | XMS_ITS | Clinical Summary ---
Author Organization [facility] Address [address] [place] [address] Care Team Providers Care Senior Enlisted Advisor Name Role Phone Carlos Krause MD Primary Care P netteder Allergies No known active allergies Medications albuterol HFA 90 mcg/actuation inhaler Inhale 2 Puffs by mouth every 6 hours if needed. 5 Active albuterol HFA 90 mcg/actuation inhalerIndicati ons:Wheezing Inhale 1-2 Puffs by mouth every 4 hours if needed for Shortness Of Breath or Wheezing. 3 Each 3 5 Active medication order composer colostrum 5 Active medication order composer Lions Cj 5 Active medication order composer Black seed capsule 5 Active medication order composer Vit E, Vit D, calcium, pro-biotic 5 Active Active Problems Problem Noted Date Diagnosed Date Lung nodule 10/04/2024 Thrombocytosis 09/29/2024 Nicotine dependence, cigarettes, uncomplicated 0 09/27/2024 Wheezing 09/27/2024 Weight loss 09/27/2024 Alcohol dependence, daily use 09/27/2024 Encounters Date Type Department Care Team Description 10/17/2024 10:30 AM CDT Office Visit [facility] [address] [place] [address] Michelle Triplett PA Hand Pain/problem (Sat. Night she had a burning pain in right hand and by Monday it was in her left hand-states it is gone now but it moves around-went to left shoulder, right shoulder blade and now into knee-wants second opinion-was told osteoarthritis) 10/17/2024 Travel 10/14/2024 Nurse Triage [facility] [address] [place] [address] Carlos Krause MD Hand Pain/problem 10/07/2024 Telephone [facility] [address] [place] [phone] Pravin Holbrook MD Referral 10/07/2024 Telephone [facility] [address] [facility] [address] Carlos Krause MD Questions (cologuard) 10/07/2024 Telephone [facility] [address] [place] [phone] Carlos Krause MD Lung Screening CT Result 10/04/2024 Orders Only [facility] [address] [place] [phone] Carlos Krause MD <No scans attached> 10/02/2024 11:30 AM CDT Ancillary Procedure [facility] [address] [place] [address] 10/02/2024 Travel 09/30/2024 Telephone [facility] [address] [facility] [place] [address] Carlos Krause MD Results 09/27/2024 10:25 AM CDT Office Visit [facility] [address] [facility] [place] [address] Carlos Krause MD Medicare ANNUAL (subsequent) Visit (74 year old female); Gi Problem (Diarrhea for 2 months, consistent, gets up during the night to go) 09/27/2024 Travel from Last 3 Months Immunizations Immunization Administration Dates Next Due INFLUENZA, IIV3 PF (AGE >= 6 MO) 02/05/2014,04/17,01/05/2012 Tdap 05/05/2021,12/11/2009 Social History Tobacco Use Types Packs/Day Years Used Date Smoking Tobacco: Every Day Cigarettes 0.5 52.5 Started: 1972 Smokeless Tobacco: Never Tobacco Cessation:Ready to Q uit: No; Counseling Given: Yes Alcohol Use Standard Drinks/Week Comments Yes 0 (1 standard drink = 0.6 oz pur e alcohol) 21 drinks per week PHQ-2 Answer Date Recorded PHQ-2 TOTAL SCORE 2 09/27/2024 Social Connections Answer Date Recorded Do you often feel lonely or isolated from those around you? 0 10/17/2024 Financial Resource Strain Answer Date R ecorded Difficulty of Paying Living Expenses 3 10/17/2024 Difficulty of Paying Living Expenses Not on file 10/17/2024 Food Insecurity Answer Date Recorded Do you worry your food will run out before you are able to buy more? 1 10/17/2024 Transportation Needs Answer Date Record ed Does lack of transportation keep you from medica l appointments? 1 10/17/2024 Does lack of transportation keep you from work, meetings or getting things that you need? 1 10/17/2024 Housing Stability Answer Date Recorded What is your housing situation today? 1 10/17/2024 Utilities Answer Date Recorded Do you have trouble paying f or utilities (for example, heat, electricity, water, phone)? 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 Gender Identity Not on file Sexual Orientation Not on file Obstetrics History Last Filed Vital Signs Vital Sign Reading Time Taken Comments Blood Pressure 180/82 10/17/2024 10:34 AM CDT Pulse 81 10/17/2024 10:34 AM CDT Temperature 36.9 C (98.4 F) 09/27/2024 10:32 AM CDT Respiratory Rate - - Oxygen Saturation 98% 10/17/2024 10:34 AM CDT Inhaled Oxygen Concentration - - Weight 45.8 kg (101 lb) 10/17/2024 10:34 AM CDT Height 169 cm (5' 6.54) 09/27/2024 10:32 AM CDT Body Mass Index 16.04 09/27/2024 10:32 AM CDT Plan of Treatment Health Maintenance Due Date Last Done Comments Hepatitis C screening for ag e 18-79 1968 Pneumococcal series for age 50+ (1 of 2 - PCV) 1969 Lipids for age 45-75 1995 Mammogram for age 45-75 1995 Zoster (shingles) series for age 50+ (1 of 2) 2000 DEXA/DXA scan for age 65+ 2015 COVID-19 vaccine series (3 - season) 2023 09/04/2020, 08/14/2020 Influenza Vaccine (#1) 2024 , 04/30/2013, 01/05/2012 RSV vaccine for adults or (1 - 1-dose 75+ series) 2025 BMI (ht and wt on same day) for age 18+ 09/27/2025 09/27/2024 Depression screening for age 12+ 09/27/2025 09/27/2024 Medicare Wellness for age 65+ 09/28/2025 09/27/[address] (for lung CA) ag e 50-80 10/02/2025 10/02/2024 Fecal testing sDNA-FIT (Cologuard) for age 45-75 10/17/2027 10/16/2024 Tetanus booster 05/05/2031 05/05/2021, 12/11/2009 Hepatitis B series for 19+ Aged Out N o longer eligible based on patient's age to complete this topic Procedures Procedure Name Priority Date/Time Associated Diagnosis Comments CBC WITH AUTO DIFFERENTIAL Routine 10/17/2024 11:44 AM CDT Chronic diarrhea COMP METABOLIC PANEL Routine 10/17/2024 11:44 AM CDT Chronic diarrhea LIPASE Routine 10/17/2024 11:44 AM CDT Chronic diarrhea MAGNESIUM Routine 10/17/2024 11:44 AM CDT Chronic diarrhea C-REACTIVE PROTEIN Routine 10/17/2024 11 :44 AM CDT Chronic diarrhea URIC ACID Routine 10/17/2024 11:44 AM CDT Arthralgia, unspecified joint RA QUANTITATIVE Routine 10/17/2024 11:44 AM CDT Arthralgia, unspecified joint SDNA-FIT EXTERNAL (COLOGUARD) Routine 10/16/2024 12:00 PM CDT Screening for colon cancer CT CHEST SCREENING LOW DOSE WO CONTRAST Routine 10/02/2024 11:34 AM CDT Smoking addiction Nicotine dependence, cigarettes, uncomplicated HEMOGLOBIN A1C MONITORING (POCT) Routine 09/27/2024 12:11 PM CDT Diabetes mellitus screening Other specified abnormal findings of blood chemistry CBC WITH AUTO DIFFERENTIAL Routine 09/27/2024 12:05 PM CDT Fatigue, unspecified type TSH Routine 09/27/2024 12:05 PM CDT Fatigue, unspecified type COMP METABOLIC PANEL Routine 09/27/2024 12:05 PM CDT Alcohol dependence, daily use (HC) Fatigue, unspecified type from Last 3 Months Results * (ABNORMAL) RA QUANTITATIVE (10/17/2024 11:44 AM CDT) RHEUMATOID FACTOR 19(H) <14 IU/mL [facility] Blood BLOOD SPECIMEN / Unknown 10/17/2024 11:44 AM CDT 10/17/2024 11:45 AM CDT us Michelle BLISS SEND OUTS Final Resu lt [facility] [address] [place] [address], [place] [phone] [facility] [address] [place] [address] * (ABNORMAL) C-REACTIVE PROTEIN (10/17/2024 11:44 AM CDT) Pathologist [facility] C-REACTIVE PROTEIN 40.3(H) <8.0 mg/L [facility] Blood BLOOD SPECIMEN / Unknown 10/17/2024 11:44 AM CDT 10/17/2024 11:45 AM CDT Michelle BLISS CHEMISTRY Final Resu lt [facility] [address] [place] [address], [facility] [address] [place] [address] * (ABNORMAL) CBC AND DIFFERENTIAL (10/17/2024 11:44 AM CDT) Only the most recent of2 resultswithin the time period is included. Pathologist [facility] WHITE BLOOD CELL COUNT 9.0 3.8 - 10.8 Thousand/u L [facility] RED BLOOD CELL COUNT 5.03 3.80 - 5.10 Million/uL [facility] HEMOGLOBIN 15.7(H) 11.7 - 15.5 g/dL [facility] HEMATOCRIT 47.0(H) 35.0 - 45.0 % [facility] MCV 93.4 80.0 - 100.0 fL [facility] MCH 31.2 27.0 - 33.0 pg [facility] MCHC 33.4 32.0 - 36.0 g/dL [facility] Comment: For adults, a slight decrease in the calculated MCHC value (in the range of 30 to 32 g/dL) is most likely not clinically significant; however, it should be interpreted with caution in correlation with other red cell parameters and the patient's clinical condition. RDW 13.0 11.0 - 15.0 % [facility] PLATELET COUNT 403(H) 140 - 400 Thousand/u L [facility] MPV 9.7 7.5 - 12.5 fL [facility] ABSOLUTE NEUTROPHILS 6,084 1,500 - 7,800 cells/uL [facility] ABSOLUTE LYMPHOCYTES 1,665 850 - 3,900 cells/uL [facility] ABSOLUTE MONOCYTES 945 200 - 950 cells/uL [facility] ABSOLUTE EOSINOPHILS 243 15 - 500 cells/uL [facility] ABSOLUTE BASOPHILS 63 0 - 200 cells/uL [facility] NEUTROPHILS 67.6 % [facility] LYMPHOCYTES 18.5 % [facility] MONOCYTES 10.5 % [facility] EOSINOPHILS 2.7 % [facility] BASOPHILS 0.7 % [facility] Blood BLOOD SPECIMEN / Unknown 10/17/2024 11:44 AM CDT 10/17/2024 11:45 AM CDT Michelle BLISS HEMATOLOGY Final Resu lt [facility] [address] [place] [address], [place] [phone] [facility] [address] [place] [address] * URIC ACID (10/17/2024 11:44 AM CDT) URIC ACID 3.0 2.5 - 7.0 mg/dL [facility] Comment: Therapeutic target for gout patients: <6.0 mg/dL Blood BLOOD SPECIMEN / Unknown 10/17/2024 11:44 AM CDT 10/17/2024 11:45 AM CDT Michelle BLISS CHEMISTRY Final Resu lt [facility] [address] [facility] [place] [address], [place] [phone] [facility] [address] [facility] [place] [address] * MAGNESIUM (10/17/2024 11:44 AM CDT) Pathologist [facility] MAGNESIUM 2.2 1.5 - 2.5 mg/dL [facility] Blood BLOOD SPECIMEN / Unknown 10/17/2024 11:44 AM CDT 10/17/2024 11:45 AM CDT Michelle BLISS CHEMISTRY Final Resu lt [facility] [address] [address], [place] [phone] [facility] [address] [place] [address] * LIPASE (10/17/2024 11:44 AM CDT) Pathologist [facility] LIPASE 11 7 - 60 U/L [facility] Blood BLOOD SPECIMEN / Unknown 10/17/2024 11:44 AM CDT 10/17/2024 11:45 AM CDT Michelle BLISS CHEMISTRY Final Resu lt Performing Organization Address [facility]/ZIP Co de Phone Number [facility] [address] [address], [place] [phone] [facility] [address] [place] [phone] * (ABNORMAL) COMP METABOLIC PANEL (10/17/2024 11:44 AM CDT) Only the most recent of2 resultswithin the time period is included. GLUCOSE 91 65 - 99 mg/dL [facility] Comment: Fasting reference interval UREA NITROGEN (BUN) 7 7 - 25 mg/dL [facility] CREATININE 0.50(L) 0.60 - 1.00 mg/dL [facility] EGFR 98 > OR = 60 mL/min/1.7 3m2 [facility] BUN/CREATININE RATIO 14 6 - 22 (calc) [facility] SODIUM 131(L) 135 - 146 mmol/L [facility] POTASSIUM 4.7 3.5 - 5.3 mmol/L [facility] CHLORIDE 93(L) 98 - 110 mmol/L [facility] CARBON DIOXIDE 29 20 - 32 mmol/L [facility] CALCIUM 9.8 8.6 - 10.4 mg/dL [facility] PROTEIN, TOTAL 7.2 6.1 - 8.1 g/dL [facility] ALBUMIN 4.3 3.6 - 5.1 g/dL [facility] GLOBULIN 2.9 1.9 - 3.7 g/dL (calc) [facility] ALBUMIN/GLOBULIN RATIO 1.5 1.0 - 2.5 (calc) [facility] BILIRUBIN, TOTAL 0.7 0.2 - 1.2 mg/dL [facility] ALKALINE PHOSPHATASE 92 37 - 153 U/L [facility] AST 21 10 - 35 U/L [facility] ALT 13 6 - 29 U/L [facility] Blood BLOOD SPECIMEN / Unknown 10/17/2024 11:44 AM CDT 10/17/2024 11:45 AM CDT Michelle BLISS CHEMISTRY Final Resu lt [facility] [address] [place] [address], [facility] [address] [place] [address] * SDNA-FIT EXTERNAL (COLOGUARD) (10/16/2024 12:00 PM CDT) NONINV COLON CA DNA+OCC BLD SCRN STL-IMP Negative Negative 10/21/2024 4:49 AM CDT [facility] (CLIA #:[id number]) Comment: The Cologuard (TM) test was performed on this specimen. NEGATIVE TEST RESULT. A negative Cologuard result indicates a low likelihood that a colorectal cancer (CRC) or advanced adenoma (adenomatous polyps with more advanced pre-malignant features) is present. The chance that a person with a negative Cologuard test has a colorectal cancer is less than 1 in 1500 (negative predictive value >99.9%) or has an advanced adenoma is less than 5.3% (negative predictive value 94.7%). These data are based on a prospective cross-sectional study of 10,000 individuals at average risk for colorectal cancer who were screened with both Cologuard and colonoscopy. (Danie Nelson. et al, N Engl J Med 2014;370(14):1286- 1297) The normal value (reference range) for this assay is negative. COLOGUARD RE-SCREENING RECOMMENDATION: Periodic colorectal cancer screening is an important part of preventive healthcare for asymptomatic individuals at average risk for colorectal cancer. Following a negative Cologuard result, the [employer] Cancer Society and U.S. Multi-Society Task Force screening guidelines recommend a Cologuard re-screening interval of 3 years. References: [employer] Society Guideline for Colorectal Cancer Screening: https://www.cancer.org/cancer/aavqw-qkqwrr-ozpimk/pbasnkyqv-iayrfjdqt-gxtlxzs/ac s-rec ommendations.html.; Jabari MEDINA, Lexus GARAY, Wild WhitneyK, Colorectal Cancer Screening: Recommendations for Physicians and Patients from the U.S. Multi-Society Task Force on Colorectal Cancer Screening , Am J Gastroenterology 2017; 112:9784-6418. TEST DESCRIPTION: Composite algorithmic analysis of stool DNA-biomarkers with hemoglobin immunoassay. Quantitative values of individual biomarkers are not reportable and are not associated with individual biomarker result reference ranges. Cologuard is intended for colorectal cancer screening of adults of either sex, 45 years or older, who are at average-risk for colorectal cancer (CRC). Cologuard has been approved for use by the U.S. FDA. The performance of Cologuard was established in a cross sectional study of average-risk adults aged 50-84. Cologuard performance in patients ages 45 to 49 years was estimated by sub-group analysis of near-age groups. Colonoscopies performed for a positive result may find as the most clinically significant lesion: colorectal cancer [4.0%], advanced adenoma (including sessile serrated polyps greater than or equal to 1cm diameter) [20%] or non- advanced adenoma [31%]; or no colorectal neoplasia [45%]. These estimates are derived from a prospective cross-sectional screening study of 10,000 individuals at average risk for colorectal cancer who were screened with both Cologuard and colonoscopy. (Danie George al, N Engl J Med 2014;370(14):7402-9477.) Cologuard may produce a false negative or false positive result (no colorectal cancer or precancerous polyp present at colonoscopy follow up). A negative Cologuard test result does not guarantee the absence of CRC or advanced adenoma (pre-cancer). The current Cologuard screening interval is every 3 years. ([place] Cancer Society and U.S. Multi-Society Task Force). Cologuard performance data in a 10,000 patient pivotal study using colonoscopy as the reference method can be accessed at the following location: www.ScraperWiki/results. Additional description of the Cologuard test process, warnings and precautions can be found at www.[employer]igord.com. Stool specimen (specimen) (Rectum) 10/16/2024 12:00 PM CDT 10/17/2024 10:05 AM CDT Carlos Krause MD URINE Final Result [facility] (CLIA #:[id number]) [address] [place] [address], * CT CHEST SCREENING LOW DOSE WO CONTRAST (10/02/2024 11:34 AM CDT) Anatomical Region Laterality Modality Computed Tomogra phy Impressions 10/04/2024 9:42 AM CDT 1. Ground-glass 31 mm nodule at the right lung apex (Lung-RADS Category 3: Probably benign). 2. Recommendation: Low-dose chest CT in 6 months. Please note that all CT scans at this facility use dose modulation, iterative reconstruction and/or weight-based dosing when appropriate to reduce radiation dose to as low as reasonably achievable. Dictated by: Mckay Page DO @10/03/2024 3:26:52 PM/gilda Narrative 10/04/2024 9:42 AM CDT For Patients: As a result of the Cures Act, medical imaging exams and procedure reports are released immediately into your electronic medical record. You may view this report before your referring provider. If you have questions, please contact your health care provider. CT CHEST SCREENING LOW-DOSE WITHOUT CONTRAST, 10/02/2024 INDICATION: Smoking addiction. Nicotine dependence, cigarettes, uncomplicated. Lung cancer screening. Greater than or equal to 20 pack-year smoking history. Current smoker. TECHNIQUE: Low-dose lung cancer screening non-contrast CT chest. Dose reduction techniques were used. COMPARISON: None available. FINDINGS: MEDIASTINUM/SOFT TISSUES: No pleural or pericardial effusions. No pathologic lymphadenopathy. Aortic atherosclerosis. Unenhanced thoracic aorta and main pulmonary arteries are normal in caliber. Heart size is within normal limits. Soft tissues of the thoracic wall are unremarkable. LUNGS: No pneumothorax. Central airways are patent. Mild to moderate emphysema. Ground-glass nodule at the right lung apex measures 31 mm. Lungs are otherwise clear. UPPER ABDOMEN: Visualized unenhanced upper abdomen is unremarkable. BONES: No acute or suspicious osseous abnormality. Degenerative changes of the spine. Carlos Krause MD CT Final Result * HEMOGLOBIN A1C MONITORING (POCT) (09/27/2024 12:11 PM CDT) POC HEMOGLOBIN A1C 5.3 <6.0 % OF TOTAL HGB [facility] Comment: Any point of care results exhibiting inconsistency with the patient's clinical status should be repeated using a different testing method. Blood BLOOD SPECIMEN / Unknown 09/27/2024 12:11 PM CDT 09/27/2024 12:12 PM CDT Narrative [facility] - 09/27/2024 12:23 PM CDT FASTING:NO FASTING: NO Carlos Krause MD CHEMISTRY Final Result [facility] [address] [place] [address], [facility] [address] [place] [address] * TSH (09/27/2024 12:05 PM CDT) TSH 0.44 0.40 - 4.50 mIU/L [facility] Blood BLOOD SPECIMEN / Unknown 09/27/2024 12:05 PM CDT 09/27/2024 12:07 PM CDT Narrative [facility] - 09/28/2024 6:19 AM CDT FASTING:NO FASTING: NO Carlos Krause MD CHEMISTRY Final Result Performing Organization Address City/[facility]/ZIP Co de Phone Number [facility] [address] [place] [address], [facility] [address] [place] [address] from Last 3 Months Additional Health Concerns Infection Onset Date Last Indicated Rule-Out Stool Pathogen 10/17/2024 10/22/19 Rule-Out C.diff 10/21/2024 10/21/2024 Insurance [place] PB ONLY [place] HB ONLY MEDICARE PART B HB ONLY MEDICARE PART A HB ONLY Care Teams Senior Enlisted Advisor Relationship Specialty Start Date End Date Carlos Krause MD [address] [place] [address] PCP - General Family Practice 09/27/24
[2024-10-22 06:00] VITALS: BP 161/81; PULSE 80; RESP 16; TEMP 37; O2SAT 96; BMI 16.1
[2024-10-22] MEDS: FAMOTIDINE 20 MG TABLET PO (07:09)
[2024-10-22] MEDS: KETOROLAC 10 MG TABLET PO (07:11)
--- NOTE | 2024-10-22 07:17 | ED.GENADULT ---
HPI - General Adult General Chief complaint: Unspecified Complaint, Adult Stated complaint: body aches Time Seen by Provider: 10/22/24 06:09 Source: patient Mode of arrival: ambulatory Limitations: no limitations History of Present Illness HPI narrative: 74-year-old female presents to the emergency department with chronic, nonspecific complaints. She reports that she is frustrated by chronic diarrhea which has been an ongoing issue and apparently has had an extensive outpatient workup. She is also frustrated by migratory arthritis of multiple sites. Today her left knee and left wrist are bothering her the most. Patient reports that she has had recent outpatient testing done at [facility]. She was told it was not gout. It sounds as though she has been tested for Lyme, tick-borne illnesses, inflammatory conditions all appropriately. I review her records here and see that she has seen Dr. Grace and he thought that this was osteoarthritis and recommended a trial of Celebrex and a 2 week follow-up to see how that was going for further workup if not successful. Patient read that she may have diarrhea as a side effect and never took the Celebrex. She then waited for a month and scheduled with a different provider at a different clinic rather than follow-up as was requested. She is very conflicting evidence on the timeline of her arthritis. She originally tells me that it was right after she had the flu in April, then she tells me it was 3-4 months later. I see that she had a trial of methylprednisolone for her lung disease in May and when I asked specifically if it seem to have made a difference with her arthritis, she gets lost in the conversation. I do see that there is cognitive impairment on her problem list as well. Patient does drink 3-4 alcoholic beverages per day and does continue to smoke. She does me that she is using Tylenol for pain but cannot quantify the dose. She also will occasionally use Advil p.m. it sounds like 1 tablet once a week if the pain is very bad but she is not regularly using NSAIDs. It sounds like she is taking far below available maximum dose of her Tylenol as well. She has had no fever, no new trauma or injury. accompanying does seem a bit frustrated as well but he is quite motivated in the conversation to help her and is willing to keep a symptom diary and help navigate her reluctance to try medication but yet see gout multiple medical visits. Past medical history, prior ED notes and prior clinic notes are reviewed. Prior blood tests are reviewed as well from our system. ROS is notable for the musculoskeletal symptoms as above she also reports some fatigue, weight loss and chronic diarrhea. Additional ROS is negative for the remaining 8 systems but I do not see significant weight loss since her last outpatient clinic visit. Please note that this was a stated weight and not an actual weight which is very suboptimal in interpretation. Related Data Previous Rx's ?Medication ?Instructions ?Recorded ipratropium 0.5 mg-albuterol 3 mg 3 ml inhalation Q6H PRN #180 mL 06/17/24 (2.5 mg base)/3 mL nebulization soln albuterol sulfate 90 mcg/actuation 2 puff inhalation Q8H PRN 07/23/24 aerosol inhaler shortness of breath or wheezing #8.5 grams celecoxib 200 mg capsule (Celebrex) 200 mg PO DAILY #30 caps 10/22/24 prednisone 20 mg tablet 20 mg PO DAILY 3 days #3 tabs 10/22/24 Allergies Allergy/AdvReac Type Severity Reaction Status Date / Time No Known Drug Allergies Allergy Verified 10/22/24 05:50 [facility] Medical History Osteoarthritis ?M19.90 - Unspecified osteoarthritis, unspecified site (ICD-10) COPD (chronic obstructive pulmonary disease) ?J44.9 - Chronic obstructive pulmonary disease, unspecified (ICD-10) Mild cognitive impairment ?G31.84 - Mild cognitive impairment of uncertain or unknown etiology (ICD-10) Elevated blood pressure reading without diagnosis of hypertension ?R03.0 - Elevated blood-pressure reading, without diagnosis of hypertension (ICD-10) Osteoporosis ?M81.0 - Age-related osteoporosis without current pathological fracture (ICD-10) Cigarette smoker ?F17.210 - Nicotine dependence, cigarettes, uncomplicated (ICD-10) PID (pelvic inflammatory disease) ?N73.9 - Female pelvic inflammatory disease, unspecified (ICD-10) Anxiety and depression ?F41.9 - Anxiety disorder, unspecified (ICD-10) ?F32.A - Depression, unspecified (ICD-10) Infection of lower respiratory tract (05/14/24) ?J22 - Unspecified acute lower respiratory infection (ICD-10) Multiple pulmonary nodules ?R91.8 - Other nonspecific abnormal finding of lung field (ICD-10) Emphysema of lung ?J43.9 - Emphysema, unspecified (ICD-10) Surgical History H/O reduction of closed fracture (05/20/15) ?Z87.81 - Personal history of (healed) traumatic fracture (ICD-10) History of cochlear implant ?Z96.21 - Cochlear implant status (ICD-10) History of nasal polypectomy (11/29/10) ?Z98.890 - Other specified postprocedural states (ICD-10) ?Z87.09 - Personal history of other diseases of the respiratory system (ICD-10) Family History Sister Thyroid disease Breast cancer Mother Osteoporosis Social History What is your current living situation?: I have a place to live at present, but am concerned about future Problems where you live: pests, such as bugs, ants, or mice In the past 12 months, utilities in danger of being shut off: no In past 12 months, lack of transportation kept you from medical appts, meetings, work, or getting things needed for daily living: no In the past 12 mos, have been you worried that your food would run out before you had money to buy more?: never true In the past 12 mos, the food you bought just didn't last and you didn't have money to buy more?: never true Smoking Status: Current every day smoker What tobacco products do you use: cigarettes Do you use any of these nicotine containing products: None Second hand tobacco smoke exposure: No How often do you have a drink containing alcohol: never AUDIT-C Alcohol total score: 0 Non-prescribed substance use: denies use How often does anyone, including family, friends and others, physically hurt you: never How often does anyone, including family, friends and others, insult or talk down to you: never How often does anyone, including family, friends and others, threaten you with harm: never How often does anyone, including family, friends and others, scream or curse at you: never Health Related Social Needs: Inadequate housing (Z59.1) and housing instability, housed, with risk of homelessness (Z59.811) Exam Const: Vital Signs, click to edit/add: Vital Signs - 24 hr 10/22/24 06:00 Temperature 98.6 F Pulse Rate [Pulse Oximeter] 80 Respiratory Rate 16 Blood Pressure [Ri ght Upper Arm] 161/81 H Pulse Oximetry 96 Oxygen Delivery Me thod Room Air Documenting provider has reviewed patient's vital signs: yes Other: Anxious, difficult to redirect. Insight fair at best. Does appear clean, well nourished and well hydrated. HENMT: Common normals: moist oral mucous membranes and oropharynx normal Head and scalp: normal to inspection Throat: posterior oropharynx normal Eye: Common normals: conjunctivae normal General eye: normal appearance of both eyes Conjunctiva: conjunctiva(e) normal Neck & C-Spine: Common normals: full ROM and no lymphadenopathy General: normal visual inspection Resp: Common normals: normal respiratory effort and no use of accessory muscles Effort & inspection: able to speak in complete sentences Other: Mild expiratory wheeze and prolongation of expiration, consistent with known history of COPD. Extremity: Other: No evidence of effusions in the wrists, knees or ankles. Patient reports excruciating pain when she tries to move it but I can passively move the joints without difficulty. Tenderness reported over the whole joint, not specifically at the medial or lateral joint lines or any focal area. No redness, no warmth, no swelling, no weakness appreciated. Neuro: Common normals: moves all extremities and no focal motor deficits Psych: Attitude: guarded Mood and affect: anxious Insight: fair Judgement: fair Other: Very dismissive of treatment recommendations and catastrophizes is frequently. Skin: Common normals: no rashes or lesions noted General skin exam: no rashes or lesions noted Course Course ED Course: 74-year-old female with joint pain. No evidence of septic arthritis, inflammatory arthritis or other acute emergent conditions. No injury or trauma. Has been going on for many months. I reviewed the prior workup and prior ED and clinic notes. Counseled patient that she is really doing herself a disservice by not trying the anti-inflammatory medications and she actually is hindering our ability to help move forward in her workup by not knowing if she is responsive to prednisone or not. This seemed to seeing can for her. She is willing to keep a symptom diary, her partners willing to help with this as well. I would like to do a 3 day trial of prednisone 20 mg once daily and then transition her on to 200 of Celebrex once daily. She is likely to respond to prednisone after 24 hours or so. It is important that we keep a diary of her symptoms to know if she does in fact respond. She is hesitant to do a high dose so and only going to do 20 mg. Should get a dose here in the ED and then tomorrow she will start her 3 day home trial. Then we also need to compare how the transition on the Celebrex goes to know if this was effective for her. This has to be done in a reasonable time course so that her provider knows how best to help her outpatient. We will also give a dose of Toradol here in the ED but I also extensively discussed proper dosing of Tylenol, how use of something like gentle [id number] sleep aids at bedtime can be helpful for her. She really should consider cutting down on the alcohol. I do not recommend that we repeat the tests that have all ready been done. Alarm symptoms reviewed that would warrant ED presentation. Written instructions provided. She verbalizes understanding and agreement and will coordinate her own outpatient follow-up in 7-10 days. Vital Signs Vital signs: Initial Vital Signs Temperature 98.6 F 10/22/24 06:00 Temperature Source Temporal Artery Scan 10/22/24 06:00 Pulse Rate 80 10/22/24 06:00 Respiratory Rate 16 10/22/24 06:00 Blood Pressure 161/81 H 10/22/24 06:00 Blood Pressure Mean 107 H 10/22/24 06:00 Blood Pressure Position Sitting 10/22/24 06:00 Pulse Oximetry 96 10/22/24 06:00 Oxygen Delivery Method Room Air 10/22/24 06:00 Vital Signs Temperature 98.6 F 10/22/24 06:00 Pulse Rate 80 10/22/24 06:00 Respiratory Rate 16 10/22/24 06:00 Blood Pressure 161/81 H 10/22/24 06:00 Pulse Oximetry 96 10/22/24 06:00 Oxygen Delivery Method Room Air 10/22/24 06:00 Temperature 98.6 F 10/22/24 06:00 Pulse Rate 80 10/22/24 06:00 Respiratory Rate 16 10/22/24 06:00 Blood Pressure 161/81 H 10/22/24 06:00 Pulse Oximetry 96 10/22/24 06:00 Oxygen Delivery Method Room Air 10/22/24 06:00 Medications Administered Medications: Discontinued Medications Generic Name Dose Route Start Last Admin Trade Name Tisha PRZaira Reason Stop Dose Admin Famotidine 20 mg 10/22/24 06:55 10/22/24 07:09 Famotidine 20 Mg Tablet PO 10/22/24 06:56 20 mg ONCE ONE Administration Ketorolac Tromethamine 10 mg 10/22/24 06:55 10/22/24 07:11 Ketorolac 10 Mg Tablet PO 10/22/24 06:56 10 mg ONCE ONE Administration Prednisone 20 mg 10/22/24 06:56 10/22/24 07:10 Prednisone 20 Mg Tablet PO 10/22/24 06:57 20 mg ONCE ONE Administration Discharge Plan Discharge Clinical Impression: Osteoarthritis Patient Disposition: Home w/ Parent or Adult Condition: Stable Instructions: Osteoarthritis (DC) Additional Instructions: I agree with the previous physician that your pain is caused by osteoarthritis which can be a very frustrating condition. It sounds as though there has been excellent outpatient workup but no inflammatory, infectious or rheumatological cause has been found, this is actually good news. I would like to perform a trial of better anti-inflammatory medication to see how this improves her pain. It is critical that your keeping a symptom diary for the next 10 days and that you follow-up with your primary care provider in 7-10 days specifically so they can know how this trial of prednisone went and how your symptoms changed when you transition on to the Celebrex. This information will be incredibly valuable in knowing how to treat flare ups of your pain in the future. You will start prednisone 20 mg once daily. You were given today's dose already in the emergency room. I would like for you to continue on this pill just once daily for an additional 3 days. Take it with food, preferably sometime before noon. If you take it too close to bedtime, it may cause insomnia. After your few days on the prednisone, switch to Celebrex 200 mg once daily. I have sent a bottle to the pharmacy but it looks like this is the dose that you may have at home as well. You are going to have to keep taking Tylenol for your pain on an every day basis. Proper dose for an adult your size is 3000 mg once a day. You can do this with regular Tylenol, extra-strength Tylenol or Tylenol arthritis, whichever combination you prefer. I would also like for you to keep using 2 Advil p.m. +10 mg of melatonin at bedtime to help you sleep. You may wean off of the ibuprofen once things improve, but please continue using the melatonin, Tylenol and Celebrex on an ongoing basis unless directed to stop by your primary care provider. Please call for that appointment so that you can be seen in the window we discussed to see how things are going. It may be helpful for you to bring this paperwork with you. For most, symptoms improved markedly after about 24 hours on prednisone. Activity Level: Activity as Tolerated Discharge Diet: Regular Prescriptions: New celecoxib [Celebrex] 200 mg capsule 200 mg PO DAILY Qty: 30 2RF prednisone 20 mg tablet 20 mg PO DAILY 3 Days Qty: 3 1RF Discontinued celecoxib [Celebrex] 200 mg capsule 200 mg PO QDAY Qty: 30 2RF No Action ipratropium-albuterol 0.5 mg-3 mg(2.5 mg base)/3 mL solution for nebulization 3 ml inhalation Q6H PRNQty: 180 8RF albuterol sulfate 90 mcg/actuation HFA aerosol inhaler 2 puff INHALATION Q8H PRN (Reason: shortness of breath or wheezing) Qty: 8.5 3RF Follow Up/Referrals: Major Grace MD [Staff Physician, Internal Medicine] Stand Alone Forms: [employer] Info Instructions
== END 2024-10-22 07:26 | disposition home or self-care (01) ==
LOC: ED 07:09
PROVIDERS: Emergency Provider Family Medicine
DX: M15.9 Polyosteoarthritis, unspecified (principal)
CPT/HCPCS: 99283; A9270; J7512

== ENCOUNTER 2024-11-29 18:44 | Emergency (ER) | payer MEDICARE, BC, SELFPAY ==
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
--- OUTSIDE RECORDS SUMMARY | 2024-11-29 18:45 | XMS_ITS | Clinical Summary ---
Author Organization [facility] Address [address] [place] [id number] Care Team Providers Care Water Resource Consultant Name Role Phone Carlos Krause MD Primary Care P rovider Allergies No known active allergies Medications albuterol [...] Lions Cj 5 Active medication order composer Vit E, Vit D, calcium, pro-biotic 5 Active celecoxib (CELEBREX) 200 mg capsule Take 200 mg by mouth two times daily with meals. 5 Active vancomycin (VANCOCIN) 125 mg capsuleIndicati ons:C. difficile diarrhea Take 1 Capsule (125 mg) by mouth four times daily. 40 Capsule 5 Active medication order composer Black seed capsule 5 11/02/19 25 Discontinu ed(*Med complete/R egimen complete/L evel of care change) vancomycin (VANCOCIN) 125 mg capsuleIndicati ons:C. difficile diarrhea Take 1 Capsule (125 mg) by mouth four times daily for 10 days. 40 Capsule 11/02/19 Discontinu ed(Reorder (E-cancel not sent)) Active Problems Problem Noted Date Diagnosed Date Lung nodule 10/04/2024 Thrombocytosis 09/29/2024 Nicotine dependence, cigarettes, uncomplicated 0 09/27/2024 Wheezing 09/27/2024 Weight loss 09/27/2024 Alcohol dependence, daily use 09/27/2024 Encounters Date Type Department Care Team Description 11/29/2024 Telephone [facility] [address] [facility] [place] [address] Carlos Krause MD Medication Management (vancomycin (VANCOCIN) 125 mg capsule/) 11/29/2024 Nurse Triage [facility] [address] [facility] [place] [address] Carlos Krause MD Diarrhea 11/01/2024 10:25 AM CDT Office Visit [address] [place] [address] Carlos Krause MD Follow Up (ER- still having diarrhea- /pain is better- in wrist- still there) 11/01/2024 Travel 10/27/2024 Travel 10/24/[address] [address] Carlos Krause MD Refill Request (prednisone, celecoxib , and vancomycin (VANCOCIN) 125 mg capsule) 10/23/2024 Orders Only [address] [address] Michelle Triplett PA <No scans attached> 10/22/2024 Telephone [facility] [address] [place] [address] Lacie Kaiser PA 10/21/2024 Orders Only [facility] Scanner 1 scan: (1-Ord) [facility], 10/21/2024 10/17/2024 10:30 AM CDT Office Visit [facility] [address] [place] [address] Michelle Triplett PA Hand Pain/problem (Sat. Night she had a burning pain in right hand and by Monday it was in her left hand-states it is gone now but it moves around-went to left shoulder, right shoulder blade and now into knee-wants second opinion-was told osteoarthritis) 10/17/2024 Travel 10/14/2024 Nurse Triage [facility] [address] [facility] [place] [address] Carlos Krause MD Hand Pain/problem 10/07/2024 Telephone [facility] [place] [address] [place] [phone] Pravin Holbrook MD Referral 10/07/2024 Telephone [facility] [address] [facility] [place] [address] Carlos Krause MD Questions (cologuard) 10/07/2024 Telephone [facility] [address] [place] [address] Carlos Krause MD Lung Screening CT Result 10/04/2024 Orders Only [facility] [address] [place] [address] Cralos Krause MD <No scans attached> 10/02/2024 11:30 AM CDT Ancillary Procedure [facility] [address] [facility] [place] [address] 10/02/2024 Travel 09/30/2024 Telephone [facility] [address] [facility] [place] [address] Carlos Krause MD Results 09/27/2024 10:25 AM CDT Office Visit [facility] [address] [facility] [place] [address] Carlos Krause MD Medicare ANNUAL (subsequent) Visit (74 year old female); Gi Problem (Diarrhea for 2 months, consistent, gets up during the night to go) 09/27/2024 Travel from Last 3 Months Immunizations Immunization Administration Dates Next Due INFLUENZA, IIV3 PF (AGE >= 6 MO) 02/05/2014,04/17,01/05/2012 Tdap 05/05/2021,12/11/2009 Social History Tobacco Use Types Packs/Day Years Used Date Smoking Tobacco: Every Day Cigarettes 0.5 52.6 Started: 1972 Smokeless Tobacco: Never Tobacco Cessation:Ready [...] on file 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 Gender Identity Not on file Sexual Orientation Not on file Obstetrics History Last Filed Vital Signs Vital Sign Reading Time Taken Comments Blood Pressure 179/84 11/01/2024 10:28 AM CDT Pulse 84 11/01/2024 10:28 AM CDT Temperature 36.9 C (98.4 F) 09/27/2024 10:32 AM CDT Respiratory Rate - - Oxygen Saturation 98% 11/01/2024 10:28 AM CDT Inhaled Oxygen Concentration - - Weight 46 kg (101 lb 6.4 oz) 11/01/2024 10:28 AM CDT Height 169 cm (5' 6.54) 09/27/2024 10:32 AM CDT Body Mass Index 16.1 09/27/2024 10:32 AM CDT Plan of Treatment Health Maintenance Due Date Last Done Comments Hepatitis C screening for ag e 18-79 1968 Pneumococcal series for age 50+ (1 of 2 - PCV) 1969 Lipids for age 45-75 1995 Mammogram for age 45-75 1995 Zoster (shingles) series for age 50+ (1 of 2) 2000 DEXA/DXA scan for age 65+ 2015 COVID-19 vaccine series ( - season) 2023 09/04/2020, 08/14/2020 Influenza Vaccine (#1) 2024 4, 04/30/2013, 01/05/2012 RSV vaccine for adults or [...] Procedure Name Priority Date/Time Associated Diagnosis Comments CLOSTRIDIOIDES DIFFICILE TOXIN PCR Routine 10/21/2024 11:00 AM CDT Chronic diarrhea STOOL PATHOGEN MULTIPLEX PCR PANEL Routine 10/21/2024 10:59 AM CDT Other specified bacterial intestinal infections SCAN-LABORATORY REPORT 12:00 AM CDT CBC WITH AUTO DIFFERENTIAL Routine 10/17/2024 11:44 [...] from Last 3 Months Results * (ABNORMAL) CLOSTRIDIOIDES DIFFICILE TOXIN PCR (10/21/2024 11:00 AM CDT) CLOSTRIDIUM DIFFICILE TOXIN/GDH W/REFL TO PCR SEE NOTE(A) [facility] Comment: CLOSTRIDIUM DIFFICILE TOXIN/GDH W/REFL TO PCR Micro Number: [id number] Test Status: Final Specimen Source: Stool Specimen Quality: Adequate GDH Antigen: Detected Toxin A and B: Detected COMMENT: Toxigenic C. difficile detected For additional information, please refer to [email or web address]/[email or web address] (This link is being provided for informational/educational purposes only.) Stool STOOL SPECIMEN / Unknown 10/21/2024 11:00 AM CDT 10/21/2024 11:00 AM CDT Michelle BLISS MICROBIOLOGY Final Resu lt [facility] [address] [place] [address], [facility] [address] [place] [address] * STOOL PATHOGEN MULTIPLEX PCR PANEL (10/21/2024 10:59 AM CDT) Pathologist [facility] Campylobacter NOT Detected NOT Detected 10/22/2024 10:27 AM CDT [facility] Salmonella NOT Detected NOT Detected 10/22/2024 10:27 AM CDT [facility] Shigella NOT Detected NOT Detected 10/22/2024 10:27 AM CDT [facility] Vibrio NOT Detected NOT Detected 10/22/2024 10:27 AM CDT [facility] Yersinia Enterocolitica NOT Detected NOT Detected 10/22/2024 10:27 AM CDT [facility] Shiga Toxin 1 NOT Detected NOT Detected 10/22/2024 10:27 AM CDT [facility] Shiga Toxin 2 NOT Detected NOT Detected 10/22/2024 10:27 AM CDT [facility] Norovirus NOT Detected NOT Detected 10/22/2024 10:27 AM CDT [facility] Rotavirus NOT Detected NOT Detected 10/22/2024 10:27 AM CDT [facility] Stool STOOL SPECIMEN / Unknown Non-Blood / Unknown 10/21/2024 10:59 AM CDT 10/21/2024 10:59 AM CDT Narrative [facility] - 10/22/2024 10:27 AM CDT This test is a Culture Independent Diagnostic Test (CIDT) therefore isolates are not available for susceptibility testing. Antibiotic treatment is often contraindicated and may be detrimental in cases of enteric infections, thus routine susceptibility testing is not recommended. Michelle BLISS MICROBIOLOGY Final Resu lt [facility] [address] [place] [address], [place] * SCAN-LABORATORY REPORT (10/21/2024 12:00 AM CDT) Scanner OTHER Final Result * (ABNORMAL) RA QUANTITATIVE (10/17/2024 11:44 AM CDT) RHEUMATOID FACTOR 19(H) <14 IU/mL [facility] Blood BLOOD SPECIMEN / Unknown 10/17/2024 11:44 AM CDT 10/17/2024 11:45 AM CDT Michelle BLISS SEND OUTS Final Resu lt Performing Organization Address [facility]/ZIP Co de Phone Number [facility] [address] [place] [address], [facility] [address] [place] [address] * (ABNORMAL) C-REACTIVE PROTEIN (10/17/2024 11:44 AM CDT) C-REACTIVE PROTEIN 40.3(H) <8.0 mg/L [facility] Blood BLOOD SPECIMEN / Unknown 10/17/2024 11:44 AM CDT 10/17/2024 11:45 AM CDT Michelle BLISS CHEMISTRY Final Resu lt [facility] [address] [place] [address], [facility] [address] [place] [address] * (ABNORMAL) CBC AND DIFFERENTIAL (10/17/2024 11:44 AM CDT) Only the most recent of2 resultswithin the time period is included. Pathologist [facility] WHITE BLOOD CELL COUNT 9.0 3.8 - [...] CDT Michelle BLISS HEMATOLOGY Final Resu lt [facility] [address] [place] [address], [place] [phone] [facility] [address] [place] [address] * URIC ACID (10/17/2024 11:44 AM CDT) URIC ACID 3.0 2.5 - 7.0 mg/dL [facility] Comment: Therapeutic target for gout patients: <6.0 mg/dL Blood BLOOD SPECIMEN / Unknown 10/17/2024 11:44 AM CDT 10/17/2024 11:45 AM CDT Michelle BLISS CHEMISTRY Final Resu lt [facility] [address] [facility] [place] [address], [place] [phone] [facility] [address] [facility] [place] [address] * MAGNESIUM (10/17/2024 11:44 AM CDT) MAGNESIUM 2.2 1.5 - 2.5 mg/dL [facility] Blood BLOOD SPECIMEN / Unknown 10/17/2024 11:44 AM CDT 10/17/2024 11:45 AM CDT Michelle BLISS CHEMISTRY Final Resu lt [facility] [address] [place] [address], [place] [phone] [facility] [address] [place] [address] * LIPASE (10/17/2024 11:44 AM CDT) [facility] [address] LIPASE 11 7 - 60 U/L [facility] Blood BLOOD SPECIMEN / Unknown 10/17/2024 11:44 AM CDT 10/17/2024 11:45 AM CDT Michelle BLISS CHEMISTRY Final Resu lt Performing Organization Address [facility] Co de Phone Number [facility] [address] [place] [address], [place] [phone] [facility] [address] [place] [address] * (ABNORMAL) COMP METABOLIC PANEL (10/17/2024 11:44 AM CDT) Only the most recent of2 resultswithin the time period is included. [facility] [address] GLUCOSE 91 65 - 99 mg/dL [facility] Comment: Fasting reference interval UREA [...] CDT Michelle BLISS CHEMISTRY Final Resu lt [facility] [address] [place] [address], [facility] [address] [place] [address] * SDNA-FIT EXTERNAL (COLOGUARD) (10/16/2024 12:00 PM CDT) NONINV COLON CA DNA+OCC BLD SCRN STL-IMP Negative Negative 10/21/2024 4:49 AM CDT [facility] (CLIA #:[id number]) Comment: The Cologuard (TM) test was performed [...] screened with both Cologuard and colonoscopy. (Danie Schultz, N Engl J Med 2014;370(14):1286- 1297) The normal value (reference range) for this assay is negative. COLOGUARD RE-SCREENING RECOMMENDATION: Periodic colorectal cancer screening is an important part of preventive healthcare for asymptomatic individuals at average risk for colorectal cancer. Following a negative Cologuard result, the [place] [employer] and U.S. Multi-Society Task Force screening guidelines recommend a Cologuard re-screening interval of 3 years. References: [place] [employer] Guideline for Colorectal Cancer Screening: https://www.cancer.org/cancer/qgwsi-hcrjqy-kcqsuv/zzfambjhm-kwpbxibcb-bgmjmmc/ac s-rec ommendations.html.; Jabari DK, Lexus GARAY, Wild WhitneyK, Colorectal Cancer Screening: Recommendations for Physicians and Patients from the U.S. Multi-Society Task Force on Colorectal Cancer Screening , Am J Gastroenterology 2017; 112:1749-8475. TEST DESCRIPTION: Composite algorithmic analysis of stool [...] (Danie George al, N Engl J Med 2014;370(14):1427-4737.) Cologuard may produce a false negative or false positive result (no colorectal cancer or precancerous polyp present at colonoscopy follow up). A negative Cologuard test result does not guarantee the absence of CRC or advanced adenoma (pre-cancer). The current Cologuard screening interval is every 3 years. ([place] [employer] and U.S. Multi-Society Task Force). Cologuard performance data in a 10,000 patient pivotal study using colonoscopy as the reference method can be accessed at the following location: www.Sverve.Codemedia/results. Additional description of the Cologuard test process, warnings and precautions can be found at www.Ropatecrd.com. Stool specimen (specimen) (Rectum) 10/16/2024 12:00 PM CDT 10/17/2024 10:05 AM CDT Carlos Krause MD URINE Final Result [facility] (CLIA #:[id number]) [address] [place] [address], * CT CHEST SCREENING LOW DOSE WO [...] For Patients: As a result of the Century Cures Act, medical imaging exams and procedure [...] A1C MONITORING (POCT) (09/27/2024 12:11 PM CDT) [facility] [address] POC HEMOGLOBIN A1C 5.3 <6.0 % OF TOTAL HGB [facility] Comment: Any point of care results exhibiting inconsistency with the patient's clinical status should be repeated using a different testing method. Blood BLOOD SPECIMEN / Unknown 09/27/2024 12:11 PM CDT 09/27/2024 12:12 PM CDT Narrative [facility] - 09/27/2024 12:23 PM CDT FASTING:NO FASTING: NO Carlos Krause MD CHEMISTRY Final Result [facility] [address] [place] [address], [facility] [address] [place] [address] * TSH (09/27/2024 12:05 PM CDT) [facility] [address] TSH 0.44 0.40 - 4.50 mIU/L [facility] Blood BLOOD SPECIMEN / Unknown 09/27/2024 12:05 PM CDT 09/27/2024 12:07 PM CDT Narrative [facility] - 09/28/2024 6:19 AM CDT FASTING:NO FASTING: NO Carlos Krause MD CHEMISTRY Final Result [facility] [address] [place] [address], [facility] [address] [place] [address] from Last 3 Months Additional Health Concerns Infection Onset Date Last Indicated CLOSTRIDIUM DIFFICILE 10/21/2024 10/21/2024 Insurance [employer] BLUE MR PB ONLY [employer] [place] BL[employer] HB ONLY MEDICARE PART B HB ONLY MEDICARE PART A HB ONLY Care Teams Water Resource Consultant Relationship Specialty Start Date End Date Carlos Krause MD [address] [place] [address] PCP - General Family Practice 09/27/24
[2024-11-29 18:47] VITALS: BP 202/150; PULSE 77; RESP 26; TEMP 36.7; O2SAT 90; BMI 15.2
--- NOTE | 2024-11-29 19:01 | CRLHL7_ITS ---
For Patients: As a result of the Cures Act, medical imaging exams and procedure reports are released immediately into your electronic medical record. You may view this report before your referring provider. If you have questions, please contact your health care provider. INDICATION: Dyspnea TECHNIQUE: Chest radiograph 2 views COMPARISON: 06/17/2024 FINDINGS: Mediastinum: The mediastinum is normal in appearance. The heart silhouette is normal in size and morphology. Lung: Bilateral pulmonary hyperinflation and lucency is noted. No sign of pleural effusion seen. No pneumothorax is identified. Bone and Soft tissue: A remote, stable mild compression deformity seen in the thoracolumbar junction. IMPRESSION: 1. Bilateral pulmonary hyperinflation and lucency is noted. This is suggestive of severe, stable pulmonary emphysema. Dictated by Best Nguyen MD @ 11/29/2024 7:39:03 PM Dictated by: Best Nguyen MD @ 11/29/2024 19:39:05 (Electronically Signed)
[2024-11-29] MEDS: METHYLPREDNISOLONE SOD SUCC 62.5 MG/ML (125) 125 MG IVP (19:10)
[2024-11-29] MEDS: IPRAT-ALBUT 0.5-2.5 MG/3 ML NEB 1 NEB IH ×2 (19:11)
[2024-11-29 19:23] LABS: Hematocrit 48.3 % (33.0-51.0); Hemoglobin* 16.0 gm/dL (12.0-16.0); Immature Granulocytes Pct Auto 0.2 %; Lymphocytes Absolute Auto 2.20 K/uL (0.90-2.90); Mean Corpuscular HGB Conc 33 gm/dL (32-36); Mean Corpuscular Hemoglobin 30 pg (26-34); Mean Corpuscular Volume 91 fL (80-100); RDW Coefficient of Variation % 13.3 % (11.5-15.5); Red Blood Count 5.31 m/uL (4.00-5.20); White Blood Count* 11.90 K/uL (4.50-11.00)
[2024-11-29 19:25] LABS: Immature Granulocytes Abs Auto 0.00 K/uL (0.00-0.30)
[2024-11-29 19:26] LABS: Slide Review Reflex No
[2024-11-29 20:07] LABS: PCR FLU A Negative PCR FLU A (Negative); PCR FLU B Negative PCR FLU B (Negative); PCR RSV Negative PCR RSV (Negative); SARS PCR* Negative SARS-CoV-2 (Negative)
[2024-11-29 20:45] VITALS: BP 153/77; PULSE 56; RESP 18; TEMP 36.7; O2SAT 97
[2024-11-29 22:58] LABS: Chloride* 100 mmol/L (96-114); Potassium* 4.1 mmol/L (3.6-5.1); Sodium* 129 mmol/L (135-149)
[2024-11-29 23:01] LABS: Blood Urea Nitrogen* 11 mg/dL (7-30); Creatinine* 0.5 mg/dL (0.5-1.5); Est. Creatinine Clearance* 35.34; Estimated Glomerular Filt Rate 98 ml/min
[2024-11-29 23:02] LABS: Anion Gap 7 mEq/L (7-15); Calcium* 9.1 mg/dL (8.4-10.6); Carbon Dioxide* 22 mmol/L (20-32); Glucose* 94 mg/dL (60-115)
[2024-12-12 07:43] LABS: Troponin, Point-of-Care* 0.00 ng/ml (0.01-0.04)
== END 2024-11-29 21:00 | disposition home or self-care (01) ==
PROVIDERS: Emergency Provider Emergency Medicine
DX: J44.1 Chronic obstructive pulmonary disease with (acute) exacerbation (principal)
CPT/HCPCS: 36415; 71046; 80048; 84484; 85025; 87631; 93005; 96374; 99283; 99284; J2919